=== PATIENT | female | born 1985 | race Caucasian/White ===

== ENCOUNTER 2023-04-25 19:53 | Outpatient (REF) | payer OTHER, SELFPAY ==
[2023-04-30 13:08] LABS: Age Gdln ACOG Testing Note (.); HPV Aptima Negative (Negative); IGP, Aptima HPV, rfx 16/18,45 Note (.)
== END 2023-04-25 19:54 ==
LOC: LAB 19:53
PROVIDERS: PCP Physician Assistant; Visit Provider Physician Assistant
DX: Z12.4 Encounter for screening for malignant neoplasm of cervix (principal)
CPT/HCPCS: 87624; G0145

== ENCOUNTER 2023-10-02 08:08 | Outpatient (OUT) | payer OTHER, SELFPAY ==
[2023-10-02 08:52] LABS: Basophils Percent Auto 0.6 % (0.2-2.0); Eosinophils Absolute Auto 0.1 10^3/uL (0.0-0.7); Eosinophils Percent Auto 1.8 % (0.9-7.0); Hematocrit 38.5 % (36.0-48.0); Hemoglobin 12.1 g/dL (12.0-16.0); Immature Granulocytes Abs Auto 0.01 10^3/uL (0.00-0.03); Immature Granulocytes Pct Auto 0.2 % (0.0-0.5); Lymphocytes Absolute Auto 1.8 10^3/uL (1.2-3.8); Lymphocytes Percent Auto 28.4 % (20.5-60.0); Mean Corpuscular HGB Conc 31.4 g/dL (29.9-35.2); Mean Corpuscular Hemoglobin 28.8 pg (26.7-34.0); Mean Corpuscular Volume 91.7 fL (81.0-99.0); Mean Platelet Volume 9.9 fL (9.5-13.5); Monocytes Absolute Auto 0.6 10^3/uL (0.3-0.8); Monocytes Percent Auto 8.9 % (1.7-12.0); Neutrophils Absolute Auto 3.8 10^3/uL (1.4-6.5); Neutrophils Percent Auto 60.1 % (43.0-75.0); Platelet Count 271 10^3/uL (150-450); Red Cell Distribution Width 13.7 % (11.0-15.0); White Blood Count 6.3 10^3/uL (4.0-11.0)
[2023-10-02 09:03] LABS: INR 0.99; Partial Thromboplastin Time 29.6 sec (22.3-36.2); Prothrombin Time 10.5 sec (9.0-11.6)
[2023-10-02 09:28] LABS: Alanine Aminotransferase 19 U/L (14-59); Albumin Globulin Ratio 1.1; Albumin Level 3.9 g/dL (3.4-5.0); Alkaline Phosphatase 64 U/L (46-116); Anion Gap 13.4; Aspartate Amino Transferase 18 U/L (15-37); BUN Creatinine Ratio 16.9; Bilirubin Direct 0.1 mg/dL (0.0-0.2); Bilirubin Total 0.7 mg/dL (0.2-1.0); Calcium 8.7 mg/dL (8.5-10.1); Carbon Dioxide 27.7 mmol/L (21.0-32.0); Chloride 103 mmol/L (98-107); Estimated GFR (African America >60 (>=60); Estimated GFR (Non-African Ame >60 (>=60); Globulin 3.6 g/dL; Glucose 87 mg/dL (74-106); Potassium 4.1 mmol/L (3.5-5.1); Sodium 140 mmol/L (136-145); Total Protein 7.5 g/dL (6.4-8.2)
== END 2023-10-02 08:09 | disposition home or self-care (01) ==
PROVIDERS: Visit Provider Obstetrics & Gynecology
DX: Z01.812 Encounter for preprocedural laboratory examination (principal); N92.0 Excessive and frequent menstruation with regular cycle; R10.2 Pelvic and perineal pain; N94.10 Unspecified dyspareunia; N94.6 Dysmenorrhea, unspecified
CPT/HCPCS: 80048; 80076; 85025; 85610; 85730; 86850; 86900; 86901

== ENCOUNTER 2023-10-08 06:18 | Day surgery (SDC) | payer OTHER, SELFPAY ==
[2023-10-02 08:36] VITALS: BP 116/77; PULSE 86; RESP 14; TEMP 36.3; O2SAT 99; BMI 17.8
[2023-10-08] VITALS (21 sets, daily range): BP systolic 92–111; BP diastolic 42–73; PULSE 56–99; RESP 11–18; TEMP 35.9–36.7; O2SAT 89–100; BMI 17.3
[2023-10-08 06:51] LABS: HCG Quantitative <1 mIU/mL
[2023-10-08] MEDS: LACTATED RINGER'S SOLUTION 1,000 ML 50 ML IV ×2 (07:00→08:38)
[2023-10-08] MEDS: CEFAZOLIN SODIUM/DEXTROSE,ISO 1 GM/50 ML IV.SOLN IV ×2 (07:42→14:27)
--- NOTE | 2023-10-08 09:45 | PM.ONB ---
Brief Operative Note Date of procedure: 10/08/23 Pre-op diagnosis: menorrhagia, pelvic pain Post-op diagnosis: same as pre-op Procedure: NAME OF PROCEDURE: ? Robotic assisted laparoscopic hysterectomy with cystoscopy PROCEDURE:? The patient was taken back to the operating room, where she was prepped and draped in the normal sterile fashion after being placed in the dorsal lithotomy position.? Patient?s anesthesia was found to be adequate.? Surgical timeout was performed using two patient identifiers.? SCDs were on and in place.? Two grams of Ancef were given prior to the surgery.? Sterile Galdamez catheter was inserted.? Standard size VCare was secured to the uterine cervix and the surgeon changed gloves.? Attention then was turned to the patient's abdomen, where a supraumbilical incision was then made.? Two S retractors were used to identify the patient?s fascia.? The fascia was then tented up using Leonel clamps and the patient?s fascia was incised sharply.? Patient?s abdomen was identified and entered bluntly.? The patient had the trocar placed and a pneumoperitoneum was obtained.? Approximately 4 liters of CO2 gas was used.? The camera was then placed through the trocar.? At this time, two robot trocars were placed in the patient?s left and right side, two hand widths from the midline, and this was placed under direct visualization.? Please note absent tubes were seen. The uterine ovarian ligament was identified and transected and ligated using the vessel sealer? The vessel sealer was carried down serially to the broad ligament, to the area of the bladder flap, which was then created anteriorly, and the uterine arteries were skeletonized and sealed using the vessel sealer.? The colpotomy was made using the monopolar cautery on cut, and this was carried circumferentially, posteriorly to anteriorly, until the uterus was amputated.? The specimen was then removed intact through the vagina, without difficulty.? The vagina was then closed using two running V-Loc in a non-lock fashion.? The robot was undocked.? The abdomen was desufflated.? The skin defects were closed using 4-0 Vicryl.? Please note, the fascia was closed using 0 Vicryl.? Sponge, lap and needle counts were correct x2.? Patient was taken to recovery room in stable condition.? The patient was awakened by Anesthesia first.? Patient tolerated procedure well.??Please note left ovarian cystectomy was performed using the vessel sealer Anesthesia: CHELA Surgeon: Luigi Llamas Email Marketing Assistant: Sarah Salazar Estimated blood loss (mL): 100 Pathology: other (uterus and cervix) Condition: stable Disposition: PACU
[2023-10-08] MEDS: MEPERIDINE HCL/PF 25 MG/ML VIAL 12.5 MG IVP (10:05)
[2023-10-08] MEDS: OXYCODONE HCL/ACETAMINOPHEN 5MG/325MG 1 TAB PO (10:38)
[2023-10-08] MEDS: ONDANSETRON PF 4 MG/2 ML VIAL IV (12:10)
[2023-10-08] MEDS: LACTATED RINGER'S SOLUTION 1,000 ML 125 ML IV (13:40)
[2023-10-08 15:34] LABS: Basophils Percent Auto 0.2 % (0.2-2.0); Hematocrit 32.1 % (36.0-48.0); Hemoglobin 10.2 g/dL (12.0-16.0); Immature Granulocytes Abs Auto 0.04 10^3/uL (0.00-0.03); Immature Granulocytes Pct Auto 0.3 % (0.0-0.5); Lymphocytes Absolute Auto 0.6 10^3/uL (1.2-3.8); Mean Corpuscular HGB Conc 31.8 g/dL (29.9-35.2); Mean Corpuscular Hemoglobin 29.1 pg (26.7-34.0); Mean Corpuscular Volume 91.7 fL (81.0-99.0); Mean Platelet Volume 9.8 fL (9.5-13.5); Monocytes Absolute Auto 0.6 10^3/uL (0.3-0.8); Monocytes Percent Auto 5.2 % (1.7-12.0); Neutrophils Absolute Auto 10.2 10^3/uL (1.4-6.5); Neutrophils Percent Auto 89.3 % (43.0-75.0); Platelet Count 239 10^3/uL (150-450); Red Cell Distribution Width 13.5 % (11.0-15.0); White Blood Count 11.4 10^3/uL (4.0-11.0)
== END 2023-10-08 15:32 | disposition home or self-care (01) ==
LOC: SURGOUT 06:19 → MS 10:48
PROVIDERS: Visit Provider Obstetrics & Gynecology
PROC: (CPT 840; principal; 2023-10-08 07:30)
DX: N92.0 Excessive and frequent menstruation with regular cycle (principal); R10.2 Pelvic and perineal pain; N94.10 Unspecified dyspareunia; N94.6 Dysmenorrhea, unspecified; D25.9 Leiomyoma of uterus, unspecified; F42.9 Obsessive-compulsive disorder, unspecified; Z90.79 Acquired absence of other genital organ(s)
CPT/HCPCS: 58570; 36415; 84702; 85025; 88305; 88341; 88342; 94667; J1170; J2704

== ENCOUNTER 2024-10-12 20:25 | Outpatient (REF) | payer OTHER, SELFPAY ==
--- OUTSIDE RECORDS SUMMARY | 2024-10-12 20:29 | XMS_ITS | CCD ---
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 KIMBERLY DELGADO Attending Unavailab NAKIA Lo Attending Unavaila ble Rashid, Lluvia Primary Care Unavailable HERNAN ., DR BUCK Attending Unavailable REQUEST, DR PAULINO LISTED Primary Care Unavaila ble HERNAN ., DR BUCK Admitting Unavailable HERNAN ., DR BUCK Attending Unavailable HERNAN ., DR BUCK Admitting Unavailable REQUEST, DR PAULINO LISTED Primary Care Unavaila ble HERNAN ., DR BUCK Consulting Unavailable MARCELLE IIGAIL Consulting Unavailable HERNAN ., DR BUCK Consulting Unavailable HERNAN ., DR BUCK Attending Unavailable REQUEST, DR PAULINO LISTED Primary Care Unavaila ble HERNAN ., DR BUCK Admitting Unavailable ZIEBER, DR ZINA Cavanaugh Consulting Unavailable HEBER LLAMAS Attending Unavailable HEBER LLAMAS Attending Unavailable HEBER LLAMAS Attending Unavailable DIANA RAYUMNDO Attending Unavailable DIANA RAYMUNDO Attending Unavailable DIANA RAYMUNDO Attending Unavailable HEBER LLAMAS Attending Unavailable Medications Current Medications Medication Drug Class(es) Dates Sig (Normalized) Sig (Original) ALPRAZolam 0.5 mg disintegrating oral tablet (2 sources) Benzodiazepine Start: 06-18-2022 take 1 tablet by mouth three times daily as needed for anxiety alprazolam 0.5 mg oral tablet, disintegrating 0.5 mg = 1 tab(s), Oral, TID, PRN for anxiety, OARRS reviewed; 10 days supply; DX F41.9, # 20 tab(s), Refills(s) 0, Pharmacy: [facility] #[id number], 165, cm, 06/18/22 10:03:00 EDT, Height/Length Dosing, 49.5, kg, 06/18/22 10:03:00 EDT, Weight Do... Start Date: 06/18/22 Status: Ordered ibuprofen 600 mg oral tablet (3 sources) Nonsteroidal Anti-inflammatory Drug Start: 09-13-2021 take 1 tablet by mouth every six hours ibuprofen 600 mg Tab 600 mg = 1 tab(s), Oral, q6hr, # 40 tab(s), Refills(s) 0, Pharmacy: [facility] #[id number], 165.1, cm, 09/13/21 9:02:00 EDT, Height/Length Dosing, 60, kg, 09/13/21 9:02:00 EDT, Weight Dosing Start Date: 09/13/21 Status: Ordered levonorgestrel 0.679439 mg/hr intrauterine system (2 sources) Progestin, Progestin-containin g Intrauterine Device Start: 06-18-2022 Liletta 52 mg IUD = 1 EA, IntraUteral, Once, Refills(s) 0 Start Date: 06/18/22 Status: Ordered Multivitamins (1 source) Start: 08-30-2015 take 1 tablet by mouth once daily Multivitamins 1 tab(s), Oral, Daily, Refill(s) 0 Start Date: 08/30/15 Status: Ordered propranolol hydrochloride 20 mg oral tablet (2 sources) beta-Adrenergic Ivania Start: 06-18-2022 take 1 tablet by mouth three times daily propranolol 20 mg Tab 20 mg = 1 tab(s), Oral, TID, Take an hour before pivotal event, # 90 tab(s), Refills(s) 0, Pharmacy: [facility] #[id number], 165, cm, 06/18/22 10:03:00 EDT, Height/Length Dosing, 49.5, kg, 06/18/22 10:03:00 EDT, Weight Dosing Start Date: 06/18/22 Status: Ordered psyllium 525 mg oral capsule (1 source) Start: 05-04-2019 take 5 capsules by mouth once daily as needed for constipation Metamucil 525 mg oral capsule 2,625 mg = 5 cap(s), Oral, Daily, PRN for constipation, # 100 cap(s), Refills(s) 0 Start Date: 05/04/19 Status: Ordered Slow Release Iron 45 mg oral tablet, extended release (3 sources) Start: 09-13-2021 Slow Release Iron 45 mg oral tablet, extended release Refills(s) 0 Start Date: 09/13/21 Status: Ordered Completed/Discontinued Medications Medication Drug Class(es) Dates Sig (Normalized) Sig (Original) Multivitamins CAPS (4 sources) Multivitamins CA PS Quantity: 0 Refills: 0 Ordered: 27-Sep-2022 DO Active Problems Active Problems Problem Classification Problem Date Documented Date Episodic/Chronic Abdominal pain (1 source) Pelvic and perineal pain; Translations: [PELVIC AND PERINEAL PAIN] Onset: 03-01-2023 Episodic Anxiety disorders (5 sources) Obsessive-compulsive disorder; Translations: [Obsessive-compulsive disorder, unspecified] Onset: 06-18-2022 08-30-2015 Chronic Menstrual disorders (5 sources) Excessive and frequent menstruation with regular cycle; Translations: [EXCESS FREQ MENSTRUATION W/REG CYCL] Onset: 12-22-2022 Chronic Other diseases of veins and lymphatics (1 source) Compression of vein; Translations: [Compression of vein] Onset: 10-16-2022 Episodic Other female genital disorders (1 source) Abnormal uterine and vaginal bleeding, unspecified; Translations: [ABNORMAL UTERINE VAGINAL BLEED UNS] Onset: 03-01-2023 Chronic Other female genital disorders (4 sources) Lesion of labia; Translations: [Other specified noninflammatory disorders of vulva and perineum] Episodic Other female genital disorders (3 sources) Pelvic congestion syndrome; Translations: [Pelvic congestion syndrome] Episodic Other female genital disorders (1 source) Other specified conditions associated with female genital organs and menstrual cycle; Translations: [Oth cond assoc w female genital organs and menstrual cycle] Onset: 10-16-2022 Episodic Other nutritional; endocrine; and metabolic disorders (3 sources) Body mass index less than 20; Translations: [Body mass index (BMI) 19.9 or less, adult] Onset: 06-18-2022 Episodic Ovarian cyst (2 sources) Other ovarian cyst, left side; Translations: [Other ovarian cyst, right side] Onset: 12-24-2022 Episodic Unclassified (3 sources) Patient encounter status 03-27-2021 Unclassified (1 source) Paravisceral aneurysm of the abd aorta, without rupture; Translations: [Paravisceral aneurysm of the abd aorta, without rupture] Onset: 10-16-2022 Past or Other Problems Problem Classification Problem Date Documented Date Episodic/Chronic Unclassified (6 sources) Streptococcus agalactiae (organism) Resolved: 07-14-2018 11-25-2016 Unclassified (18 sources) Onset: 11-18-2014 Resolved: 09-13-2021 09-01-2015 Results Test Name Value Interpretation Reference Range Facility SURGICAL PATH REPORTon 10-14 SURGICAL PATH REPORT [facility] Department of Pathology [address] [place] [phone] Name: KAREEM MEYER : 1985 Formerly [facility] [id number] Number: [facility] : n: Admit 38 years Attending HEBER LLAMAS Age: Provider: Ordering HEBER LLAMAS Provider: Consulti Surgical Pathology Report ng: ACCESSION: COLLECTED DATE/TIME: RECEIVED DATE/TIME: PATHOLOGIST: [id number] 10/08/2023 13:29 EST 10/08/2023 13:29 WILLY COSTA MD, JEANETTE Final Diagnosis Report for [facility] [place] UTERUS, CERVIX; HYSTERECTOMY: - MYOMETRIUM WITH BENIGN LEIOMYOMA. - PROLIFERATIVE PHASE ENDOMETRIUM. - BENIGN CERVIX WITH MILD CHRONIC INFLAMMATION. NOTE: Immunostain for p16 and Ki67 were used for evaluation. The findings support the diagnosis. JEANETTE COSTA PATHOLOGIST (Electronic Signature) Date Verified 10/14/2023 LL Clinical Data PRE-OP DIAGNOSIS: Not specified POST-OP DIAGNOSIS: Menorrhagia, pelvic pain, dyspareunia, dysmenorrhea, PROCEDURES: DaVinci assisted laparoscopic hysterectomy, cysto SPECIMEN: Uterus, cervix VISIT #[id number] / Surgical outpatient Gross Description Labeled uterus, cervix. Received in formalin is an intact uterus with no attached adnexal structures. The uterus weighs 136 grams and measures 9.1 x 7.0 cm, AP dimension 5.0 cm. The serosal surface is burt pink, smooth and glistening. The cervical os is patent with a cross diameter of 0.6 cm. The ectocervical mucosa is burt pink, smooth and glistening. Nearer to the os it is more erythematous and fine granular. The cervical canal measures to a depth of 2.8 cm. The endometrial cavity has a normal configuration and measures to an additional depth of 5.6 cm, intrafundal dimension 3.5 cm. The endometrium is velvety, burt-red, smooth and glistening with an average thickness of 0.2 cm. Sectioning through the anterior uterine wall, it is ____ Print 10/14/2023 12:50 EST Number: Date/Time: [facility] Department of Pathology [address] [place] [phone] Name: KAREEM MEYER : 1985 Formerly [facility] [id number] Number: Gender [facility] : n: Admit 38 years Attending HEBER LLAMAS Age: Provider: Ordering HEBER LLAMAS Provider: Consulti Surgical Pathology Report ng: ACCESSION: COLLECTED DATE/TIME: RECEIVED DATE/TIME: PATHOLOGIST: [id number] 10/08/2023 13:29 EST 10/08/2023 13:29 EST IGOR JUAREZ, [facility] Gross Description homogeneous, burt pink except for the presence of two similar bulging white whorled nodules. The largest measures up to 0.6 cm in greatest dimension. The wall overall measures up to 2.3 cm in thickness. Sectioning through the posterior uterine wall, it is homogeneous, burt pink except for the presence of two similar bulging white whorled nodules. The largest measures up to 0.7 cm in greatest dimension. The wall overall measures up to 2.5 cm in thickness. Lining Folder sections are submitted under the following designations: #1 - anterior cervix at 12 o'clock #2-3 - full thickness anterior uterine wall #4 - anterior uterine wall nodules #5 - posterior cervix at 6 o'clock #6-7 - full thickness posterior uterine wall #8 - posterior uterine wall nodules MP/slb 10/08/2023 Tissue pathology report for: [facility], [address] [place] [address]; PATHOLOGY SERVICES PROVIDED BY [employer] (CLIA #[id number]) in cooperation with [facility] at [address] [place] [address] (CLIA #[id number]) Microscopic Diagnosis The final diagnosis is based on a microscopic exam of telecommunications sales representative sections. NOTE: One or more of the reagents used to perform assays on this specimen MAY have contained components considered to be analyte specific reagents ( ASRs). ASRs have not been cleared or approved by the U.S. Food and Drug Administration. The performance characteristics of these assays have been determined by the Department of Pathology at [facility]. This assay was performed subsequent to the H and E examination. Appropriate positive and negative controls were examined with appropriate reactivity. ____ Print 10/14/2023 12:50 EST Number: Date/Time: [facility] Department of Pathology [address] [place] [phone] Name: KAREEM MEYER : 1985 Financial [id number] Number: Gender Female Tamia MCKENNA : n: Admit 38 years Attending HEBER LLAMAS Age: Provider: Ordering HEBER LLAMAS (more content not included)... Normal [facility] Comment on above: Performed By: #### [id number] #### [facility] Laboratory Services [address] [place] [address] Landscape Laborer: Erickson Patel MD SURGICAL PATH REPORTon 03-12 SURGICAL PATH REPORT [facility] Department of Pathology [address] [place] [phone] Name: KAREEM MEYER : 1985 [employer] [id number] Number: Gender Female Tamia MCKENNA : n: Admit 37 years Attending HEBER LLAMAS Age: Provider: Ordering HEBER LLAMAS Provider: Consulti Surgical Pathology Report ng: ACCESSION: COLLECTED DATE/TIME: RECEIVED DATE/TIME: PATHOLOGIST: [id number] 03/08/2023 16:30 EDT 03/11/2023 13:33 EDT IGOR JUAREZ, [facility] Final Diagnosis Report for [facility] [place] BILATERAL FALLOPIAN TUBES; SALPINGECTOMY: - BENIGN BILATERAL FALLOPIAN TUBES WITH FULL CROSS SECTIONS. JEANETTE COSTA PATHOLOGIST (Electronic Signature) Date Verified 03/12/2023 Clinical Data PRE-OP DIAGNOSIS: Not specified POST-OP DIAGNOSIS: Menorrhagia, abnormal uterine bleeding, desires sterilization PROCEDURES: Endometrial ablation - Dayanara, IUD removal, bilateral laparoscopic salpingectomy assisted by Davinci robot SPECIMEN: Bilateral fallopian tubes / Ambulatory surgery Gross Description Labeled bilateral fallopian tubes. . Received in formalin are bilateral fallopian tubes. These consist of cylindrical segments which are pink purple to red. Each include one end which is fimbriated. The first fallopian tube segment measures 8.0 cm in length and has a cross diameter ranging from 0.4 to 0.6 cm proximal to distal. The remaining fallopian tube measures 6.2 cm in length and has a cross diameter ranging from 0.3 to 0.5 cm proximal to distal. The segments are serially sectioned in a transverse manner. Lining Folder sections are submitted under the following designations: 1- First described fallopian tube. ____ Print 03/12/2023 15:43 EDT Number: Date/Time: [facility] Department of Pathology [address] [place] [phone] Name: KAREEM MEYER : 1985 Former[facility] [id number] Number: Gender Female [facility] : n: Admit 37 years Attending HEBER LLAMAS Age: Provider: Ordering HEBER LLAMAS Provider: Consulti Surgical Pathology Report ng: ACCESSION: COLLECTED DATE/TIME: RECEIVED DATE/TIME: PATHOLOGIST: [id number] 03/08/2023 16:30 EDT 03/11/2023 13:33 EDT IGOR JUAREZ, [facility] Gross Description 2 - Second described fallopian tube. MP/ww 03/11/2023 Tissue pathology report for: [facility], [address] [place] [address]; PATHOLOGY SERVICES PROVIDED BY [employer] (CLIA #[id number]) in cooperation with [facility] at [address] [place] [address] (CLIA #[id number]) Microscopic Diagnosis The final diagnosis is based on a microscopic exam of telecommunications sales representative sections. Codes CPT CODE: 65406 ____ Print 03/12/2023 15:43 EDT Number: Date/Time: Normal [facility] Comment on above: Performed By: #### [id number] #### [facility] [address] [id number] Landscape Laborer: Erickson Patel MD CBC AUTO DIFFon 03-08-2023 BASO # 0.0 103/ul Normal 0.0-0.1 [facility] Comment on above: Performed By: #### C BC #### [facility] [address] [place] [address] Dr. Megan Reid Basophils/100 WBC (Bld) 0.7 % Normal 0.2-2.0 [facility] Comment on above: Performed By: #### C BC #### [facility] [address] [place] [address] Dr. Megan Reid EO # 0.1 103/ul Normal 0.0-0.7 [facility] Comment on above: Performed By: #### C BC #### [facility] [address] [place] [address] Dr. Megan Reid Eosinophils/100 WBC (Bld) 1.5 % Normal 0.9-7.0 [facility] Comment on above: Performed By: #### C BC #### [facility] [address] [place] [address] Dr. Megan Reid Erythrocyte distribution width (RBC) [Ratio] 15.0 % Normal 11.0-15.0 [facility] Comment on above: Performed By: #### C BC #### [facility] [address] [place] [address] Dr. Megan Reid Hematocrit (Bld) [Volume fraction] 37.9 % Normal 36.0-48.0 [facility] Comment on above: Performed By: #### C BC #### [facility] [address] [place] [address] Dr. Megan Reid Hemoglobin (Bld) [Mass/Vol] 12.3 g/dL Normal 12.0-16.0 [facility] Comment on above: Performed By: #### C BC #### [facility] [address] [place] [address] Dr. Megan Reid IG # 0.02 10e3/ul Normal 0.00-0.03 [facility] Comment on above: Performed By: #### C BC #### [facility] [address] [place] [address] Dr. Megan Reid IG % 0.3 % Normal 0.0-0.5 [facility] Comment on above: Performed By: #### C BC #### [facility] [address] [place] [address] Dr. Megan Reid LYMPH # 2.0 103/ul Normal 1.2-3.8 [facility] Comment on above: Performed By: #### C BC #### [facility] [address] [place] [address] Dr. Megan Reid Lymphocytes/100 WBC (Bld) 34.0 % Normal 20.5-60.0 [facility] Comment on above: Performed By: #### C BC #### [facility] [address] [place] [address] Dr. Megan Reid MANUAL DIFF REQ NO Normal [facility] Comment on above: Performed By: #### C BC #### [facility] [address] [place] [address] Dr. Megan Reid MCH (RBC) [Entitic mass] 29.1 pg Normal 26.7-34.0 [facility] Comment on above: Performed By: #### C BC #### [facility] [address] [place] [address] Dr. Megan Reid MCHC (RBC) [Mass/Vol] 32.5 g/dL Normal 29.9-35.2 [facility] Comment on above: Performed By: #### C BC #### [facility] [address] [place] [address] Dr. Megan Reid MCV (RBC) [Entitic vol] 89.6 fL Normal 81.0-99.0 [facility] Comment on above: Performed By: #### C BC #### [facility] [address] [place] [address] Dr. Megan Reid MONO # 0.6 103/ul Normal 0.3-0.8 [facility] Comment on above: Performed By: #### C BC #### [facility] [address] [place] [address] Dr. Megan Reid Monocytes/100 WBC (Bld) 9.5 % Normal 1.7-12.0 [facility] Comment on above: Performed By: #### C BC #### [facility] [address] [place] [address] Dr. Megan Reid NEUT # 3.2 103/ul Normal 1.4-6.5 [facility] Comment on above: Performed By: #### C BC #### [facility] [address] [place] [address] Dr. Megan Reid Neutrophils/100 WBC (Bld) 54.0 % Normal 43.0-75.0 [facility] Comment on above: Performed By: #### C BC #### [facility] [address] [place] [address] Dr. Megan Reid Platelet mean volume (Bld) [Entitic vol] 9.6 fL Normal 9.5-13.5 [facility] Comment on above: Performed By: #### C BC #### [facility] [address] [place] [address] Dr. Megan Reid PLT 277 103/ul Normal 150-450 [facility] Comment on above: Performed By: #### C BC #### [facility] [address] [place] [address] Dr. Megan Reid RBC 4.23 106/ul Normal 4.20-5.40 [facility] Comment on above: Performed By: #### C BC #### [facility] [address] [place] [address] Dr. Megan Reid WBC 5.9 103/ul Normal 4.0-11.0 [facility] Comment on above: Performed By: #### C BC #### [facility] [address] [address] [address] Megan Reid PREG QUANT HCGon 03-08-2023 HCG QUANT 1 mIU/mL Normal [facility] Comment on above: Performed By: #### P REGQNT #### [facility] [address] [address] [address] Megan Reid HCG RANGE SEE BELOW Normal [facility] Comment on above: Result Comment: 5-50 0.2-1 WEEK 50-500 1-2 WEEKS 100-5,000 2-3 WEEKS 500-10,000 3-4 WEEKS 1,000-50,000 4-5 WEEKS 10,000-100,000 5-6 WEEKS 15,000-200,000 6-8 WEEKS 10,000-100,000 2-3 MONTHS Performed By: #### P REGQNT #### [facility] [address] [address] [address] Megan Reid SURGICAL PATH REPORTon 01-14 SURGICAL PATH REPORT [facility] Department of Pathology [address] [place] [phone] Name: KAREEM MEYER : 1985 Former[facility] [id number] Number: [facility] : n: Admit 37 years Attending HEBER LLAMAS Age: Provider: Ordering HEBER LLAMAS Provider: Consulti Surgical Pathology Report ng: ACCESSION: COLLECTED DATE/TIME: RECEIVED DATE/TIME: PATHOLOGIST: [id number] 01/10/2023 13:32 EST 01/11/2023 13:32 EST EVANGELINA VINSON MD Final Diagnosis Report for [facility] [place] ENDOMETRIUM, BIOPSY: - ENDOMETRIUM WITH FEATURES SUGGESTIVE OF EXOGENOUS HORMONAL EFFECT. EVANGELINA VINSON PATHOLOGIST (Electronic Signature) Date Verified 01/14/2023 LN Clinical Data PRE-OP DIAGNOSIS: Not specified POST-OP DIAGNOSIS: Menorrhagia with regular cycles PROCEDURES: Endometrial biopsy SPECIMEN: EMBX VISIT #N/A / Doctor's office Gross Description Labeled EMBX. Received in formalin are multiple irregular burt feathery segments of soft tissue. The specimen is filtered and has a filtrate aggregate dimension of 0.9 x 0.6 x 0.2 cm. The specimen is entirely submitted in one cassette. MP/abeba 01/11/2023 Tissue pathology report for: [facility], [address] [place] [address], [address] [address]; ____ Print 01/14/2023 14:21 EST Number: Date/Time: [facility] Department of Pathology [address] [place] [phone] Name: KAREEM MEYER : 1985 [facility] [id number] Number: Gender [facility] : n: Admit 37 years Attending HEBER LLAMAS Age: Provider: Ordering HEBER LLAMAS Provider: Consulti Surgical Pathology Report ng: ACCESSION: COLLECTED DATE/TIME: RECEIVED DATE/TIME: PATHOLOGIST: [id number] 01/10/2023 13:32 EST 01/11/2023 13:32 EST KAREL JUAREZ, EVANGELINA Gross Description PATHOLOGY SERVICES PROVIDED BY [employer] (CLIA #[id number]) in cooperation with [facility] at [address] [place] [address] ( CLIA #[id number]) Codes CPT CODE: 21131 ____ Print 01/14/2023 14:21 EST Number: Date/Time: Normal [facility] Comment on above: Performed By: #### [id number] #### [facility] [address] [id number] Landscape Laborer: Erickson Patel MD US PELVIS AND TRANSVAGon US PELVIS AND TRANSVAG EXAMINATION: US PELVIS AND TRANSVAG HISTORY: Excessive and frequent menstruation COMPARISON: No relevant comparison available. TECHNIQUE: Transabdominal and transvaginal sonographic examination. FINDINGS: UTERUS: Normal size and appearance. Uterus size: 10.3 x 4.3 x 6.8 cm ENDOMETRIUM: IUD within endometrial cavity. Endometrial thickness: 6 mm RIGHT OVARY: Contains a 4.2 cm benign-appearing simple cyst. Duplex Doppler demonstrates normal waveform and flow; resistive index 0.5. Ovary size: 4.6 x 3.0 x 4.7 cm LEFT OVARY: Contains a 2.5 cm benign-appearing simple cyst. Duplex Doppler demonstrates normal waveform and flow; resistive index 0.5. Ovary size: 3.3 x 2.1 x 3.9 cm CUL-DE-SAC: Unremarkable. No significant free fluid. BLADDER: Unremarkable. OTHER: None. IMPRESSION: 1. No acute or suspicious findings to account for patient's symptoms. 2. IUD within endometrial cavity. 3. Bilateral large, but benign-appearing simple ovarian cysts. No additional follow-up recommended at this time. Electronically authenticated by: ZINA SINGER Date: 2022-12-23 16:25 Normal [facility] CBC AUTO DIFFon 12-22-2022 BASO # 0.0 103/ul Normal 0.0-0.1 [facility] Comment on above: Performed By: #### C BC #### [facility] [address] [place] [address] Dr. Megan Reid Basophils/100 WBC (Bld) 0.5 % Normal 0.2-2.0 [facility] Comment on above: Performed By: #### C BC #### [facility] [address] [place] [address] [address] [address] Megan Reid EO # 0.1 103/ul Normal 0.0-0.7 [facility] Comment on above: Performed By: #### C BC #### [facility] [address] [place] [address] Dr. Megan Reid Eosinophils/100 WBC (Bld) 1.2 % Normal 0.9-7.0 [facility] Comment on above: Performed By: #### C BC #### [facility] Laboratory [address] [place] [address] Dr. Megan Reid Erythrocyte distribution width (RBC) [Ratio] 14.4 % Normal 11.0-15.0 [facility] Comment on above: Performed By: #### C BC #### [facility] [address] [place] [address] Dr. Megan Reid Hematocrit (Bld) [Volume fraction] 40.6 % Normal 36.0-48.0 [facility] Comment on above: Performed By: #### C BC #### [facility] [address] [place] [address] Dr. Megan Reid Hemoglobin (Bld) [Mass/Vol] 12.3 g/dL Normal 12.0-16.0 [facility] Comment on above: Performed By: #### C BC #### [facility] [address] [place] [address] Dr. Megan Reid IG # 0.02 10e3/ul Normal 0.00-0.03 [facility] Comment on above: Performed By: #### C BC #### [facility] [address] [place] [address] Dr. Megan Reid IG % 0.3 % Normal 0.0-0.5 [facility] Comment on above: Performed By: #### C BC #### [facility] [address] [place] [address] Dr. Megan Reid LYMPH # 1.7 103/ul Normal 1.2-3.8 [facility] Comment on above: Performed By: #### C BC #### [facility] [address] [place] [address] Dr. Megan Reid Lymphocytes/100 WBC (Bld) 23.1 % Normal 20.5-60.0 [facility] Comment on above: Performed By: #### C BC #### [facility] [address] [place] [address] Dr. Megan Reid MANUAL DIFF REQ NO Normal [facility] Comment on above: Performed By: #### C BC #### [facility] [address] [place] [address] Dr. Megan Reid MCH (RBC) [Entitic mass] 28.0 pg Normal 26.7-34.0 [facility] Comment on above: Performed By: #### C BC #### [facility] [address] [place] [address] Dr. Megan Reid MCHC (RBC) [Mass/Vol] 30.3 g/dL Normal 29.9-35.2 [facility] Comment on above: Performed By: #### C BC #### [facility] [address] [place] [address] Dr. Megan Reid MCV (RBC) [Entitic vol] 92.3 fL Normal 81.0-99.0 [facility] Comment on above: Performed By: #### C BC #### [facility] [address] [place] [address] Dr. Megan Reid MONO # 0.7 103/ul Normal 0.3-0.8 [facility] Comment on above: Performed By: #### C BC #### [facility] [address] [place] [address] Dr. Megan Reid Monocytes/100 WBC (Bld) 9.5 % Normal 1.7-12.0 [facility] Comment on above: Performed By: #### C BC #### [facility] [address] [place] [address] Dr. Megan Reid NEUT # 4.8 103/ul Normal 1.4-6.5 [facility] Comment on above: Performed By: #### C BC #### [facility] [address] [place] [address] Dr. Megan Reid Neutrophils/100 WBC (Bld) 65.4 % Normal 43.0-75.0 [facility] Comment on above: Performed By: #### C BC #### [facility] [address] [address] [address] Megan Reid Platelet mean volume (Bld) [Entitic vol] 9.9 fL Normal 9.5-13.5 [facility] Comment on above: Performed By: #### C BC #### [facility] [address] [address] [address] Megan Reid PLT 332 103/ul Normal 150-450 [facility] Comment on above: Performed By: #### C BC #### [facility] [address] [address] [address] Megan Reid RBC 4.40 106/ul Normal 4.20-5.40 [facility] Comment on above: Performed By: #### C BC #### [facility] [address] [address] [address] Megan Reid WBC 7.3 103/ul Normal 4.0-11.0 [facility] Comment on above: Performed By: #### C BC #### [facility] [address] [address] [address] Megan Reid FREE T4on 12-22-2022 Free T4 [Mass/Vol] 1.00 ng/dL Normal 0.76-1.46 [facility] Comment on above: Performed By: #### F T4 #### [facility] [address] [address] [address] Megan Reid GLYCOHEMOGLOBIN A1Con 2022 ADA RECOMMENDATION SEE BELOW Normal [facility] Comment on above: Result Comment: ADA RECOMMENDED LIMIT 4.0 - 6.0 ADA THERAPEUTIC TARGET < 7.0 ACTION SUGGESTED > 7.0 Performed By: #### A 1C ####[facility] [address] [address]Dr. Megan Reid Glucose [Mass/Vol] 114 mg/dL Normal [facility] Comment on above: Performed By: #### A 1C ####[facility] [address] [address]Dr. Megan Reid HbA1c (Bld) [Mass fraction] 5.6 % Normal 4.5-6.2 [facility] Comment on above: Performed By: #### A 1C ####[facility] [address] [address]Dr. Megan Reid PREG QUANT HCGon 12-22-2022 HCG QUANT 1 mIU/mL Normal [facility] Comment on above: Performed By: #### T SH, PREGQNT #### [facility] [address] [address] [address] Megan Reid HCG RANGE SEE BELOW Normal [facility] Comment on above: Result Comment: 5-50 0.2-1 WEEK 50-500 1-2 WEEKS 100-5,000 2-3 WEEKS 500-10,000 3-4 WEEKS 1,000-50,000 4-5 WEEKS 10,000-100,000 5-6 WEEKS 15,000-200,000 6-8 WEEKS 10,000-100,000 2-3 MONTHS Performed By: #### T SH, PREGQNT #### [facility] [address] [address] [address] Megan Reid PROTIMEon 12-22-2022 INR Coag (PPP) [Relative time] 1.03 {INR} Normal [facility] Comment on above: Performed By: #### P T, PTT #### [facility] [address] [place] [address] Dr. Megan Reid INR GUIDELINES SEE BELOW Normal [facility] Comment on above: Result Comment: PHILLY RED INR: 2.0 - 3.0 CONDITIONS NOT LISTED BELOW 2.5 - 3.5 FOR PROSTHETIC HEART VALVE REPLACEMENT 2.5 - 3.5 RECURRENT THROMBOSIS Performed By: #### P T, PTT #### [facility] [address] [address] [address] Megan Reid PT Coag (PPP) [Time] 10.9 s Normal 9.0-11.6 [facility] Comment on above: Performed By: #### P T, PTT #### [facility] [address] [address] [address] Megan Reid PTTon 12-22-2022 aPTT Coag (Bld) [Time] 28.4 s Normal 22.3-36.2 [facility] Comment on above: Performed By: #### P T, PTT #### [facility] [address] [place], [place] [address] Dr. Megan Reid TSHon 12-22-2022 TSH 1.439 uIU/mL Normal 0.358-3.740 [facility] Comment on above: Performed By: #### T SH, PREGQNT #### [facility] [address] [place], [place] [address] Dr. Megan Reid Chart Updateon 10-16-2022 Chart Update Diagnoses/Problems Pelvic congestion (625.5) (N94.89) Chart Update Discussed with patient that her abd US was negative for pelvic venous congestion. I suggested to f/u with her [employer] for frequent menses and possible dermatology to look at her labia darkened spots. They are not varicose veins. Signatures Electronically signed by : JAYJAY Ram; Oct 17 2022 12:47PM EST (Author) Normal [facility] Office Visit (Vascular Surge ry)on 10-16-2022 Follow-up visit Diagnoses/Problems Assessed Pelvic congestion (625.5) (N94.89) Patient Discussion/Summary It was a pleasure to meet you today your were seen today to r/o pelvic venous congestion recent vaginal varicose vein bleed ? heavy menses' since August of last year no real pelvic pain or bloating plan: will obtain abd/aortic/iliac US today for Pelvic venous congestion stay NPO for now once your study is done we will see if Dr. Osuna can review your testing otherwise you can go home and we will call you with the results. The patient understands and agrees to the options for management and the treatment plan. All questions were answered during the office visit. Provider Impressions 37 year old female with no significant medical history who presents for evaluation of right labial varicose veins. The patient has had 5 pregnancies. She states she developed 3 small lesions on her labia after the of her youngest son in 08/2021, which she thought were black pimples at the time. She was evaluated by her OBGYN who told her they were varicose veins. She was told to put Purell on them and they eventually went away, however they continue to recur. Denies pelvic swelling. She does not have any lower extremity varicose veins or leg swelling. Grandmother with a history of varicose veins. No personal or family history of DVT. Non-smoker. Pt has 5 children with her last Aug 2021. Since then, patient has developed severe mensuration with clotting tissue and heavy flow lasting almost 10 days with very little relief between menstruation. She was seen by her [employer] Dr. Smith who placed IUD the end of May. Since then, she has experienced 3 ?vaginal varicosity bleeds. Dr. Smith recently excised on of the 3 areas of varicose veins just a few weeks ago. + pelvic pain and cramping during menses. Very heavy. No pain during intercourse. NO pain or discomfort during BM or urination . your were seen today to r/o pelvic venous congestion recent vaginal varicose vein bleed ? heavy menses' since August of last year no real pelvic pain or bloating plan: will obtain abd/aortic/iliac US today for Pelvic venous congestion stay NPO for now once your study is done we will see if Dr. Osuna can review your testing otherwise you can go home and we will call you with the results. The patient understands and agrees to the options for management and the treatment plan. All questions were answered during the office visit. Chief Complaint The patient presents to the office today for an initial evaluation. The patient presents for evaluation of. Pelvic venous congestion , labial varicose vein. The patient is referred by: Dr Mike, Primary Care Physician. Labia Varicose Veins that keep rupturing Adult Risk Screening Initial Fall Risk Screening: KAREEM has not fallen in the last 6 months. Her fall did not result in injury. KAREEM does not have a fear of falling. She does not need assistance with sitting, standing or walking. Does not need assistance walking in her home. She does not need assistance in an unfamiliar setting. The patient is not using an assistive device. History of Present Illness This is a 37 year old female with no significant medical history who presents for evaluation of right labial varicose veins. The patient has had 5 pregnancies. She states she developed 3 small lesions on her labia after the of her youngest son in 08/2021, which she thought were black pimples at the time. She was evaluated by her OBGYN who told her they were varicose veins. She was told to put Purell on them and they eventually went away, however they continue to recur. Denies pelvic swelling. She does not have any lower extremity varicose veins or leg swelling. Grandmother with a history of varicose veins. No personal or family history of DVT. Non-smoker. Pt has 5 children with her last Aug 2021. Since then, patient has developed severe mensuration with clotting tissue and heavy flow lasting almost 10 days with very little relief between menstruation. She was seen by her [employer] Dr. Smith who placed IUD the end of May. Since then, she has experienced 3 ?vaginal varicosity bleeds. Dr. Smith recently excised on of the 3 areas of varicose veins just a few weeks ago. + pelvic pain and cramping during menses. Very heavy. No pain during intercourse. NO pain or discomfort during BM or urination . Comprehensive ROS: All other systems have been reviewed and are negative except as noted in HPI Past medical, family and social history reviewed but not pertinent to current problem except as mentioned in HPI General: Alert and oriented responsive Eyes: No icterus Neck: No scars no bruits Neurological: Upper extremity and lower extremity strength +5 out of 5, gait and cognition and speech within normal limits Heart: Regular rate and rhythm Lungs: Clear Abdomen: Soft nontender no palpable masses or aneurysm Vascular: Normal 2+ upper extremity (more content not included)... Normal [facility] LAB Abdominal Aorta/Renetta ac/IVC Ultrasoundon 10-16-2022 VASC LAB Abdominal Aorta/Iliac/IVC Ultrasound Please click on the link to view the study images Normal [facility] [address] Work Phone: Office Visit (Vascular Surge ry)on 09-27-2022 Follow-up visit Diagnoses/Problems Assessed Lesion of labia (624.8) (N90.89) Provider Impressions This is a 37 year old female with no significant medical history who presents for evaluation of right labial varicose veins 1 year after . - Will refer to Dr. Osuna vs. Dr. Degroot for further evaluation and potential intervention - Will consider venous ultrasound of the groin vs. pelvic CT venous phase Chief Complaint The patient presents to the office today for an initial evaluation. Labia Varicose Veins that keep rupturing Adult Risk Screening Initial Fall Risk Screening: KAREEM has not fallen in the last 6 months. Her fall did not result in injury. KAREEM does not have a fear of falling. She does not need assistance with sitting, standing or walking. Does not need assistance walking in her home. She does not need assistance in an unfamiliar setting. The patient is not using an assistive device. History of Present Illness This is a 37 year old female with no significant medical history who presents for evaluation of right labial varicose veins. The patient has had 5 pregnancies. She states she developed 3 small lesions on her labia after the of her youngest son in 08/2021, which she thought were black pimples at the time. She was evaluated by her OBGYN who told her they were varicose veins. She was told to put Purell on them and they eventually went away, however they continue to recur. She currently has one on her right labia. They will occasionally bleed and then turn to a scab. Denies pain but they sometimes get irritated from rubbing on her clothing. Denies pelvic swelling. She does not have any lower extremity varicose veins or leg swelling. Grandmother with a history of varicose veins. No personal or family history of DVT. Non-smoker. Review of Systems As per HPI, rest of systems reviewed and negative. Allergies Medication No Known Drug Allergies Recorded By: Saray Izaguirre; 09/27/2022 1:29:17 PM Current Meds Medication NameInstruction Multivitamins CAPS Vitals Vital Signs Recorded: 27Sep2022 01:26PM Heart Rate93 Ednniqzc951 Rbprqnfck47 Height5 ft 5 in Ervpzr874 lb BMI Ospfmxwcuw09.81 kg/m2 BSA Calculated1.52 Tobacco Useb) No Falls Screening (Age 18+)a) No falls within the last year O2 Llrigaivnl235 Physical Exam Constitutional: no acute distress, well appearing Psychiatric: appropriate mood and behavior Neurologic: grossly intact, no focal deficits HEENT: PERRL, EOMI, clear sclera, moist mucous membranes, no apparent injury or lesions Neck: supple, no masses observed Cardiac: RRR, normal S1+S2, no murmur Respiratory: CTA, no wheezing Gastrointestinal: abdomen soft, NT, non-distended, no palpable pulsatile masses Extremities: no edema, peripheral pulses palpable. Small raised lesion on the right labia with a black/scabbed head Skin: No rashes, bruises, or lesions Signatures Electronically signed by : JAYJAY Hale; Sep 27 2022 2:36PM EST (Author) Normal [facility] Tobacco Screening.on 022 Fall risk assessment a) No falls within the last year [facility] [employer] [address] Work Phone: Tobacco use status [facility] b) No [facility] [place] [address] Work Phone: Coding Summary.on 09-26-2022 Coding Summary. [id number] ATd1xDg+PGhlYWQ+PE1 XRONdP50uzHWifX8DI0 lSIR8SCVJIHICQDA5EB Q5roYO0GSdlS3XhxmMc LlcgoKVfFH64IEz9LJN 5gMkiMEjkfF2qrSYlO3 p3KuGoQO26aW04PQesD SGtGnU1NyTvuvseuNHf X4fcLpDuyTVqIrz+PHR hYmxlIHdpZHRoPScxMD JlGtFwrBepLX5nMv9nU GVyLWNvbGxhcHNlOiBj b7aoAWFkHQtaPJ8tsKj bN8XznRG8DWTmo8o7He 48dHI+KUMvMVC0mQpvD Cywh765ZnQri2wtUNP1 eHZmLRxrXUZ6U84xf4Y 1YSPtAHEfWTZ6pXF4lP 0laWnvhmllU9OorNXaX kV6JYN5lJSecI5mbKvt xppyjY1kDjp+U85LYN7 BNMETWM2RKat8Q9TlRh wvdHI+BD84JNWeWT00p KBcdUUne4ddcZn0KwOw WVVnKGX1eRtlZAarp3S lSMTqL80zaBRrn7M9XW YduWiyaMOfTcTfvIC6u E1fJCwphzsmr3waxbkq Svqpr3ufsu06wI84M84 uASedYNNfNHI7OUTxMV BluFhtls9dtD9eCb3+I Fkpk2wyf3svqKd4UwPx MAXyddTprRylNDG2x7E kPk78L7ZgsVdlp6QhBd c6gy55uVQuh3K5rXL4T LmvYRWyeH1fCMpvBiZ2 SEYzOfApbS24hMYzPDz yUl4isNdlbPpdTP4vRV YhaxdzMEXorN3dSPLwd LOiiAkuBK4aXQGbqceg n577TeGuOAE7GUEhwTK iS1XjhT2uOeAgZWJkEO GgY9HwvBScYEfxQ877T CwlFkA0ITJpffMgZ9Ln VFSomSqzRvU2e4M7Ds4 Gd1GlzkuoBER3SOhoOH TuJfQ2PrGwIcI4A3BvO kq2PCBswVkkOH4oG1Rj ERCdchkrexgmoPK7RDE nQERwuW85dFVvVInvAk 8qr5B9l752UZPiBTTkb N11Ar0faSfrFSWhwXJF zR1sagltj9mmpcwsEaS aNNBaFAj2QGi2BMVeqF pgErGsHTC5UlZ4DIJ5h JLgwX2usNnsfnsfcT2o Oyc+J33zdZ6gXRD6FCE 3snldDMDayfIiKL35HL 81D7MiBoujzKJfqUO+P KZtnoLtzBgyFF4oWeJn g5oxd9TaJJzeE7EsGTC dDRrnTzy2SEXoZOB8qL X2oF9bIRQpXRvds9W0g OM2U5JnpiJcja3no6qa VIPuLLvoO44iqMZgw7Y 9WFJkbSS6EUJvzWfoXl SryR90Iis+PGNvbGdyb 7CcIuqox8wsa0vlwAv3 IjMwJSIgdmFsaWduPSJ 9q1WpOy36Z93mMOncHI RoPSIxNSUiIHZhbGlnb a1edH5jOm6+PGNvbCB3 nAN6uA3kTLHjBbE2RNk sT478GjMxaNGjSxols5 zrb4jzdJe5CuAlVBJdk qQneGjpJSC1e1BdDx73 R45wMObuNKCdCRFjYWR sDMThqSjmki1dxL9yIj 8+IS7bc1dnkk28aU77k HI+CASeWML4zJnzXRan YPDsrS3dXMyaOrC1WXW aAcYjgZ98eKJjSDejPk 3quMxriBqkGJ5cPNDmm tnii243QeKva6sjCUYu mKMpSZraHOR0X31nq1Z 8JAPnXMBwFPX1zWO8fT 1hbGlnbjogbGVmdDsgd wBwtPlfKOwjPFwfF162 IHRvcDsnPlBhdGllbnQ tJiTlHIm8D0FrHdh6PF KubEjjNE9alUPzFTjuA x2nsQlgxTsyYQ0eNBVf nrovg624YfFij4bpPKM cmPLeCNftPDB6D56yx6 A6DEQiJHFfMED7ePY5m J9caPwrgyddrWRrgQgw hsJefWpvGFinXHtdU11 6IHRvcDsnPkJpcnRoIE OryMF5LL12EZ38eEZdi 7D5vKR9E5TzYVVxqckd oftnmOV5ZVAtTTOotL5 1Cx1tbJqjRc2xMCHcGT U2GEOwnZQrT7TugV5vC aJaJUCrOQUtS9FxuUIr KBigF207OCjnNoJ2PFR ujzNuX0WyYKRdjEtaLz Y1n1S3Sd2EI2E4TF08H E69bKUpc4Z5fQF4Z1Df VIGdxgzovttphZV9ADG rIIZxrX40Ca6dpDefOg 8dIVRuFVF2EDWnkSArW 7NdaN3pSmInRZVxNGMf C5RamZGtOBvmZ407CMx fUmO5BRZyhaCqF3OjXH SneJhvRzK3t6P2Iu3NG Qg4WK27AB86sZKli4C8 oJW7H3LrXWXkqpteelx kqBW3WRYjIEDowR71Cn 0ncDzoRw8gXQWlIMW4P UAktWUlQ9HjfF3tPmYk GVTjRZNtA8PrxWGkMZy pX810ZHapAtG7GOYvra RmU7HvFPQeqYttAnX5w 3Z2Fj4OGQHaWK46QNC6 pEB8UV66ON85A8ToZnf vdGFibGU+PHRhYmxlIH dpZHRoPScxMDAlJyBzd JmyZE7tPj9eMMIuNKDn aXvtoTKxIeQoh0lyZUN gQRibUW3cpOqfB2YcdM J4TYDjo3o2Sr08K59eG 3JvdXA+RKJvpBS2aCC9 xA3hVbMqLzQ8FNupR49 6WtHpgHRiLdxvl3ahx6 wbdJl4IlJ2OZYcdiHrl YdjAWI4t4BfXs28T24a IHdpZHRoPSIxNSUiIHZ pcBnwbt1jtL4hLk6+PG QvuUR1mWU9tK9qPhBoS wP5QNehM271ItDypRSh Doflc8iyi0sbsXk2EdD mTPFelmGrqSyuUFV0j8 JlTc23F0VxpAogi3SgE cw7yy02wRZqi7C8uWR4 T8NeLKAutsbluNClwWg nDB1jUNGxrzvsSITlbD 0xSFMeD5o5LrToPnR9G FicF6DeaaX5RMFzlLXs CXlpVBF7Y68hf3H9WPY sNWAwOYC2bPC9xM4siR lnbjogbGVmdDsgdmVyd RhbRBoxKAvaE904AZUo dBuaBGWxfD2xJXZmtAF fwIinTL2iVSAumxcbAx NURUlOLCBTVEFDWSBMP B80JM52rPEhi7M3eFH5 U9AhIQAysworlenmiMN 3ZTInNLDsuT37xYOqBC laLt9mv5T7c899CFMfL QVovC27Rc1ypOpmWYRr nZLBmF1msnrlg1nnnbn tAzItZJPiQNs8RHg4RV NiwFkdWaYlCUY0VxX0M GN4vWSedI4sjYvdfkgi bS1tZed+MDQvMjIvMTk 4NzwvdGQ+OGUrTDT3zR kxYAngRDZsbR2gBXQjY 8f9CoEmDlR6WScgJ1Jz TEXcspejEg10vM9uPrT tPnG4ECfyB2WvyuG2ZI LexPMpNYgiYXH0Y25hf 6Q5PRMuKOBtKXB5yDR3 dJ7wyKlgprgptGSzoFw gdmVydGljYWwtYWxpZ2 91YKRnyRywOiJ6OWwoU JUbZV42RL87fBYtv3U4 mMZ1R8FcCZTepppgqco pzCM4PSMyLKHdkW46mU GjGHrxDm4iv2S1v928D WDeXMDyfK86Lo2bhCko RCSiyOHQxH7alpybz6d qwlytHrCuWJTaNVa5VZ e3QKAmvZukQyVhYZJ5T yO5ARZ0bCJahY3rzJup zgprdZ7xKva+RmVtYWx bDQ38KQ32lOVhp1L7gF C4P4EhZTFsyyqqcrfnb OS9KEOtHRYilC29gMFt TMetHu3wq8Q9a789EHT nLHCxkF31Hk8xfUgcFU LoyHLXuT2donued0yjo axjOzWwOXYlLUe6VPc3 IPAbmIddGlDiFLL3WdG 1IPZ4gJNtnP0tvOslgz zynW0bMmy+P0M1sHN0m WVudDwvdGQ+TL78nu33 J7RjIowlHmz4ZQFdMOD 7gRC1cV3tFZUkGBncj1 L3pLP9N3CcjgKbui0jz 1zaUGIsHWgvK44hzJKj n4W8KZJweAF5KMXpeIx cDxIatC66Jfv+PGNvbG rzk5MhQbnhn8pab3vdo He6RoMpHRTboqRarWek WQM6s2WyCv15C85wSCn pZHRoPSIzMCUiIHZhbG nnyj3puH4hFc7+PGNvb AK9yGX8kG8cRbXtNmR3 VBoxX485ZvSbgKXhVok bk4xrk3rdtSp0ZiSkMS LihyRihSklENU2q6VmE b44U6ZqxDzrx4QbPyd9 vx27vQKis5P9xUK7R2B hZGRpbmctbGVmdDogMC 8nPPZnsiuqCLAqgQ7lP VEsT9w3KnWgDzJ6MJgc D6TbsaI0JUXsxKXvUPP wvPRYfD0bqlehn2rquh gmSkCtUZItUEk6SLr8X ELyrJkeVgPyICZ2PgS9 ETG2mGYlqX3ysYiyjjw kqX5kBxl+PZe3o6biiQ TmUG0fnSF6AD60TM46p ITgp9L8vIZ3K0VyNIUl fwjqioaasJN0XEJmVCN bvW37Fe6fkWmnPk6iQY BoMJN2HHZyeVYwL7Him X1qTzTtUPDpEAPwC9Oz aQGgRNyzR517FJtrTmC 8GKMsvtBzU2XoZDOadW hhSeZ3y3Q7Lq3AQV43Z P38YA84wMEdr5Z4zZN6 K5EyNPIgfvjbmbpvjVM 9JUNsJBGddE94My6bqS koQo6aMYYjWOE4NPCaa NJdZ0KivX4oCxKxDZZx JOVfI0KvlNEbVUwsN11 5SNcoKsJ3UKBbxaQrP7 KbZVJkqVboQaL6b4L4P n9TNw03GB12BY62zXEi y0X7tBH1L4GiBGUrefl lzwugeEF9AYUcAUVvvW 63Uy4xbXbqMp2zBASvQ GU8WZOhxVIqU0XvzV4m SqTnXQQaEJBdY3CccLU gFGogN395DLkvKpZ5HT FovvFuX0WsOVYpwAnnJ fH8p2F1Rk0XZNafkjc5 E8VnTzyiyLZ+AE02JUF bYC44dEKkcRLic0lvfL t8GsWxEVRxOQC9pIevE Mffv2UxGWKyA79apKPp c2U6 (more content not included)... Normal [facility] .Interpretation:on HCV Ab IA Ql Comment Invalid Interpretation Code [facility] Comment on above: Result Comment: Nega tive Not infected with HCV, unless recent infection is suspected or other evidence exists to indicate HCV infection. Performed at: [facility] [address] [place] [address] [id number] PhD Madie Ansari Performed By: #### 1 [id number] #### [facility] [address] [place] [id number] HCV Antibody RFX to Quant PC Shay 09-21-2022 HCV Ab Signal/Cutoff IA [Rel units/Vol] 0.1 s/co ratio Invalid Interpretation Code 0.0-0.9 [facility] Comment on above: Result Comment: Perf ormed at: [facility] [address] [place] [address] [id number] PhD Madie Ansari Performed By: #### 1 [id number] #### [facility] [address] [place] [address] CBC w/Indiceson 09-20-2022 Erythrocyte distribution width (RBC) [Ratio] 14.1 % Normal 10.9-14.2 [facility] Comment on above: Performed By: #### 1 [id number], [id number] #### [facility] [address] [place] [address] Hematocrit (Bld) [Volume fraction] 38.5 % Normal 34.0-46.0 [facility] Comment on above: Performed By: #### 1 [id number], [id number], [id number], 3840955, 2958749, [id number], [id number], [id number] #### [facility] [address] [place] [address] Hemoglobin (Bld) [Mass/Vol] 12.5 g/dL Normal 12.0-16.0 [facility] Comment on above: Performed By: #### 1 [id number], [id number], 9924917, 0957993, 2801140, [id number], [id number], [id number] #### [facility] [address] [place] [address] MCH (RBC) [Entitic mass] 28.4 pg Normal 27.0-34.0 [facility] Comment on above: Performed By: #### 1 [id number], [id number], 0399158, 1063002, 7272875, [id number], [id number], 6942090 #### [facility] [address] [place] [address] MCHC (RBC) [Mass/Vol] 32.3 g/dL Normal 31.4-36.0 [facility] Comment on above: Performed By: #### 1 [id number], [id number], 9404790, 3547555, 2442728, [id number], [id number], [id number] #### [facility] [address] [place] [address] MCV (RBC) [Entitic vol] 87.7 fL Normal 80.0-100.0 [facility] Comment on above: Performed By: #### 1 [id number], [id number], 6094800, 9638791, 7779677, [id number], [id number], 0177806 #### [facility] [address] [place] [address] Platelet mean volume (Bld) [Entitic vol] 8.8 fL Normal 6.4-10.8 [facility] Comment on above: Performed By: #### 1 [id number], [id number], 1140311, 5543755, 8857764, [id number], [id number], 9322061 #### [facility] [address] [place] [address] 41925 Platelets (Bld) [#/Vol] 270.0 E9/L Normal 150.0-500.0 [facility] Comment on above: Performed By: #### 1 [id number], [id number], 5211858, 9091359, 7312338, [id number], [id number], 2091275 #### [facility] [address] [place] [address] 12144 RBC (Bld) [#/Vol] 4.4 E12/L Normal 4.3-5.9 [facility] Comment on above: Performed By: #### 1 2357690, 589855959, 2055537, 1309850, 3526508, 0654839139, [id number], 6273280 #### [facility] [address] [place] [address] 16355 WBC corrected for nucl RBC Auto (Bld) [#/Vol] 6.5 E9/L Normal 4.0-11.0 [facility] Comment on above: Performed By: #### 1 0626664, [id number], 7910498, 7839540, 8187658, 9901771632, 5084009979, 0683790 #### [facility] [address] [place] [id number] CHEMISTRYOrdered By: SYSTEM SYSTEM on 09-20-2022 25-hydroxyvitamin D3 [Mass/Vol] 21.9 ng/mL Low 30.0 - 100.0 ng/mL [facility] Albumin [Mass/Vol] 4.6 g/dL Normal 3.3 - 5.0 gm/dL [facility] Albumin/Globulin [Mass ratio] 1.4 {ratio} Normal 1.1 - 2.2 [facility] ALP [Catalytic activity/Vol] 53 [iU]/d Normal 21 - 98 Int._Unit/L [facility] ALT No additional P-5'-P [Catalytic activity/Vol] 11 [iU]/d Normal 6 - 46 Int._Unit/L [facility] Anion gap [Moles/Vol] 8 mmol/L Normal 6 - 16 mEq/L [facility] AST [Catalytic activity/Vol] 19 [iU]/d Normal 5 - 43 Int._Unit/L [facility] Bilirubin [Mass/Vol] 0.9 mg/dL Normal 0.0 - 1 .1 mg/dL [facility] Calcium [Mass/Vol] 9.1 mg/dL Normal 8.9 - 11. 1 mg/dL [facility] Chloride [Moles/Vol] 107 mmol/L Normal 101 - 1 11 mmol/L [facility] Cholesterol [Mass/Vol] 196 mg/dL Normal 120 - 200 mg/dL [facility] Cholesterol in HDL [Mass/Vol] 79 mg/dL Invalid Interpretation Code [facility] Cholesterol in LDL [Mass/Vol] 110 mg/dL Normal <=129mg/dL [facility] Cholesterol in VLDL [Mass/Vol] 6 mg/dL Low 7 - 40 mg/dL [facility] CO2 [Moles/Vol] 26 mmol/L Normal 21 - 31 mmol/L [facility] Creatinine [Mass/Vol] 0.5 mg/dL Normal 0.5 - 1.3 mg/dL [facility] GFR/1.73 sq M.predicted among blacks MDRD (S/P/Bld) [Vol rate/Area] mL/min/1.73 m2 Normal >=59mL/min/1. 73 m2 [facility] [place] Chem S GFR/1.73 sq M.predicted among non-blacks MDRD (S/P/Bld) [Vol rate/Area] mL/min/1.73 m2 Normal >=59mL/min/1. 73 m2 [facility] [place] Chem S Globulin (S) [Mass/Vol] 3.2 g/dL Normal 1.4 - 4.0 gm/dL [facility] Glucose [Mass/Vol] 96 mg/dL Normal 55 - 199 mg/dL [facility] Potassium [Moles/Vol] 3.6 mmol/L Normal 3.5 - 5.3 mmol/L [facility] Protein [Mass/Vol] 7.8 g/dL Normal 6.0 - 7.8 gm/dL [facility] Sodium [Moles/Vol] 137 mmol/L Normal 135 - 145 mmol/L [facility] Triglyceride [Mass/Vol] 32 mg/dL Normal <=149mg/dL [facility] TSH Qn 1.73 m[IU]/L Normal 0.34 - 5.60 mcIU/mL [facility] Urea nitrogen [Mass/Vol] 15 mg/dL Normal 5 - 21 mg/dL [facility] Urea nitrogen/Creatinine [Mass ratio] 30 mg/mg High 10 - 20 [facility] CMPon 09-20-2022 Anion gap [Moles/Vol] 8 mmol/L Normal 6-16 [facility] Comment on above: Performed By: #### 1 [id number], [id number], 0026957, 1113741, 8120172, 6625657958, 3256540914, 6737170 #### [facility] [address] [place] [address] Calcium [Mass/Vol] 9.1 mg/dL Normal 8.9-11.1 [facility] Comment on above: Performed By: #### 1 0995344, 084015114, 8199843, 8217385, 0331983, 1686134673, 6683261649, 8542413 #### [facility] [address] [place] [address] Chloride [Moles/Vol] 107 mmol/L Normal 101-111 [facility] Comment on above: Performed By: #### 1 3329106, 782393412, 0842806, 5580386, 7538892, 9146342361, 0164738948, 9196960 #### [facility] [address] [place] [address] CO2 [Moles/Vol] 26 mmol/L Normal 21-31 [facility] Comment on above: Performed By: #### 1 3254970, 423404137, 5121019, 3924020, 2115660, 7515283931, 9668331383, 6047081 #### [facility] [address] [place] [address] Potassium [Moles/Vol] 3.6 mmol/L Normal 3.5-5.3 [facility] Comment on above: Performed By: #### 1 2573635, 990510582, 1800835, 4064409, 3468242, 4421680152, 3982074193, 9508387 #### [facility] [address] [place] [address] Sodium [Moles/Vol] 137 mmol/L Normal 135-145 [facility] Comment on above: Performed By: #### 1 1679662, 999963471, 5870510, 7710200, 1797603, 5752558151, 4581146139, 6062582 #### [facility] [address] [place] [address] Albumin [Mass/Vol] 4.6 g/dL Normal 3.3-5.0 [facility] Comment on above: Performed By: #### 1 5349358, 167112476, 6995621, 0622299, 8532097, 1078573707, 0799479147, 1681891 #### [facility] [address] [place] [address] Albumin/Globulin (S) [Mass conc ratio] 1.4 Normal 1.1-2.2 [facility] Comment on above: Performed By: #### 1 0569987, 547680388, 2051461, 3063995, 3741692, 7272518781, 0929858105, 5057693 #### [facility] [address] [place] [address] ALP [Catalytic activity/Vol] 53 Int._Unit/L Normal 21-98 [facility] Comment on above: Performed By: #### 1 7191968, 435205999, 4063173, 6936375, 9741114, 1951361525, 1687412934, 0626022 #### [facility] [address] [place] [address] ALT No additional P-5'-P [Catalytic activity/Vol] 11 Int._Unit/L Normal 6-46 [facility] Comment on above: Performed By: #### 1 4484177, 420490964, 7244765, 0806256, 1889565, 3721978950, 3785755494, 2721695 #### [facility] [address] [place] [address] AST [Catalytic activity/Vol] 19 Int._Unit/L Normal 5-43 [facility] Comment on above: Performed By: #### 1 2557190, 978866132, 1175741, 9206746, 4967777, 6806562049, 8151563586, 7285960 #### [facility] [address] [place] [address] Bilirubin [Mass/Vol] 0.9 mg/dL Normal 0.0-1.1 [facility] Comment on above: Performed By: #### 1 2545745, 583552279, 6202986, 5118379, 8945086, 2760609514, 1392611848, 8118613 #### [facility] [address] [place] [address] Creatinine [Mass/Vol] 0.5 mg/dL Normal 0.5-1.3 [facility] Comment on above: Performed By: #### 1 7874380, 633163486, 4241241, 8069003, 3858898, 8161317476, 1041107036, 3761930 #### [facility] [address] [place] [address] Globulin (S) [Mass/Vol] 3.2 g/dL Normal 1.4-4.0 [facility] Comment on above: Performed By: #### 1 8713767, 371692621, 3504812, 3542387, 0506826, 9633531579, 9547992519, 7655784 #### [facility] [address] [place] [address] Glucose [Mass/Vol] 96 mg/dL Normal 55-199 [facility] Comment on above: Result Comment: If t his glucose result represents a fasting glucose, interpretation should refer to the following reference range: 55-99 mg/dL Performed By: #### 1 9772939, 699310977, 6514055, 0334581, 2970588, 2655403398, 5181787710, 5911833 #### [facility] [address] [place] [address] Protein [Mass/Vol] 7.8 g/dL Normal 6.0-7.8 [facility] Comment on above: Performed By: #### 1 2080794, 112048773, 9735444, 5935226, 1654638, 8901320002, 3060612351, 2155873 #### [facility] [address] [place] [address] Urea nitrogen [Mass/Vol] 15 mg/dL Normal 5-21 [facility] Comment on above: Performed By: #### 1 4813294, 004299598, 6147937, 7051881, 4527560, 5894922068, 7929377605, 0138874 #### [facility] [address] [place] [address] Urea nitrogen/Creatinine [Mass ratio] 30 No Units High 10-20 [facility] Comment on above: Performed By: #### 1 5598858, 708734524, 5169911, 0714140, 9203384, 3438013754, 2340762916, 3426699 #### [facility] [address] [place] [address] Consent for Treatmenton Consent for Treatment [id number]#[id number]:127 Normal [facility] HEMATOLOGYOrdered By: Kristine Page on 09-20-2022 Erythrocyte distribution width (RBC) [Ratio] 14.1 % Normal 10.9 - 14.2 % [facility] Hematocrit (Bld) [Volume fraction] 38.5 % Normal 34.0 - 46.0 % [facility] Hemoglobin (Bld) [Mass/Vol] 12.5 g/dL Normal 12.0 - 16.0 gm/dL [facility] MCH (RBC) [Entitic mass] 28.4 pg Normal 27.0 - 34.0 pg [facility] MCHC (RBC) [Mass/Vol] 32.3 g/dL Normal 31.4 - 36.0 gm/dL [facility] MCV (RBC) [Entitic vol] 87.7 fL Normal 80.0 - 100.0 fL [facility] Platelet mean volume (Bld) [Entitic vol] 8.8 fL Normal 6.4 - 10.8 fL [facility]eAuto[facility] Platelets (Bld) [#/Vol] 270.0 E9/L Normal 150.0 - 500.0 E9/L [facility] RBC (Bld) [#/Vol] 4.4 E12/L Normal 4.3 - 5.9 E12/L [facility] WBC corrected for nucl RBC Auto (Bld) [#/Vol] 6.5 E9/L Normal 4.0 - 11.0 E9/L [facility] Lipid Panelon 09-20-2022 Cholesterol [Mass/Vol] 196 mg/dL Normal 120-200 [facility] Comment on above: Performed By: #### 1 3074979, 474743349, 0784619, 5531554, 7078436, 7855604372, 8513798344, 3401780 #### [facility] [address] [place] [address] Cholesterol in HDL [Mass/Vol] 79 mg/dL Invalid Interpretation Code [facility] Comment on above: Result Comment: HDL > or equal to 60 mg/dL: Low cardiovascular risk HDL < 40 mg/dL : High cardiovascular risk Performed By: #### 1 3416260, 685959541, 0971174, 5779876, 6684851, 5694892929, 8250064513, 8943039 #### [facility] [address] [place] [address] Cholesterol in LDL [Mass/Vol] 110 mg/dL Normal <=129 [facility] Comment on above: Performed By: #### 1 4979054, 387287605, 8228612, 9179260, 0297243, 2107167137, 6904764097, 9634803 #### [facility] [address] [place] [address] Cholesterol in VLDL [Mass/Vol] 6 mg/dL Low 7-40 [facility] Comment on above: Performed By: #### 1 6401711, 003365199, 0402344, 1385183, 8694247, 4380884049, 3319299507, 0173295 #### [facility] [address] [place] [address] Triglyceride [Mass/Vol] 32 mg/dL Normal <=149 [facility] Comment on above: Performed By: #### 1 7759748, 068053559, 1814849, 6492030, 9091214, 4156985349, 0659483697, 8994005 #### [facility] [address] [place] [address] Physician Orderon 09-20-2022 Physician Order [id number] 251#1.00CD:127 Normal [facility] TSHon 09-20-2022 TSH Qn 1.73 m[IU]/L Normal 0.34-5.60 [facility] Comment on above: Performed By: #### 1 1715826, 706466827, 8256255, 1933271, 8415053, 9493030678, 7063732342, 5905874 #### [facility] [address] [place] [address] Vitamin D 25 Hydroxyon 09-20 25-hydroxyvitamin D3 [Mass/Vol] 21.9 ng/mL Low 30.0-100.0 [facility] Comment on above: Result Comment: Vit medeiros D deficiency has been defined as a level of serum 25-OH vitamin D less than 20 ng/mL (1,2) by the [place] [employer] and an Endocrine Society practice guideline. The Endocrine Society further defined vitamin D insufficiency as a level between 21 and 29 ng/mL (2). 1. IOM ([place] of [employer]). 2010. Dietary reference intakes for calcium and D. [place]: The National Academies Press. 2. Maye MF, Tiff SLATER, Alison TIMMONS, et al. Evaluation, treatment, and prevention of vitamin D deficiency: an Endocrine Society clinical practice guideline. JCEM. 2010; 96 (7):1911-30. Performed By: #### 1 1312018, 792951641, 4126088, 3706240, 6694474, 0533810395, 6347135753, 5199994 #### [facility] [address] [place] [address] eGFRon 09-20-2022 GFR/1.73 sq M.predicted among blacks MDRD (S/P/Bld) [Vol rate/Area] mL/min/{1.73_m2} Normal >=59 [facility] Comment on above: Order Comment: Order added by Discern Expert. Result Comment: eGFR is race adjusted. AA=. Performed By: #### 1 6338390, 192488825, 2451250, 7867207, 5230493, 6292273328, 1594866009, 5603976 #### [facility] [address] [place] [address] GFR/1.73 sq M.predicted among non-blacks MDRD (S/P/Bld) [Vol rate/Area] mL/min/{1.73_m2} Normal >=59 [facility] Comment on above: Order Comment: Order added by Discern Expert. Result Comment: Customer Care Specialist federico kidney disease could be indicated at eGFR's of less than 60 mL/min/1.73m2. Kidney failure is indicated at less than 15 mL/min/1.73m2. Performed By: #### 1 3531445, 250775392, 3278315, 8496119, 4278258, 8117502693, 8600390327, 3850587 #### [facility] [address] [place] [address] Formson 06-19-2022 Forms [id number]#[id number]:127 Normal [facility] Ambulatory Visit Summaryon 0 06-18-2022 Ambulatory Visit Summary KAREEM MEYER :1985 Visit Date:06/18/2022 Ambulatory Visit Instructions Your Diagnosis Anxiety Your Care Team Attending Physician - Heidy BALLESTEROS CNP Primary Care Physician - Heidy BALLESTEROS CNP This Is Your Medications List alprazolam (alprazolam 0.5 mg oral tablet, disintegrating) propranolol (propranolol 20 mg Tab) Contact prescribing physician if questions or concerns ferrous sulfate (Slow Release Iron 45 mg oral tablet, extended release) ibuprofen (ibuprofen 600 mg Tab) levonorgestrel (Liletta 52 mg IUD) Procedures Performed Extraction of wisdom tooth (2013). Discharge Vitals Temperature (Oral) 36.8 ?C Heart Rate (Peripheral) 118 Blood Pressure 118/76 Height 165 cm Height 165.0 cm Weight 49.5 kg Weight 49.5 kg BMI 18.18 Medications What How Much When Instructions New alprazolam (alprazolam 0.5 mg oral tablet, disintegrating) 1 Tablets By Mouth 3 times a day as needed for for anxiety OARRS reviewed; 10 days supply; DX F41.9 Pickup at [facility] #[id number] New propranolol (propranolol 20 mg Tab) 1 Tablets By Mouth 3 times a day Take an hour before pivotal event Pickup at [facility] #[id number] Unchanged ferrous sulfate (Slow Release Iron 45 mg oral tablet, extended release) Contact prescribing physician if questions or concerns Unchanged ibuprofen (ibuprofen 600 mg Tab) 1 Tablets By Mouth Every 6 hours Contact prescribing physician if questions or concerns Unchanged levonorgestrel (Liletta 52 mg IUD) 1 Each Intrauteral Once Contact prescribing physician if questions or concerns Pharmacy Information [facility] #[id number]: [address] [place], [place] [phone] Medications and Immunizations Administered Not Given influenza virus vaccine, inactivated, Patient Refuses Allergies No Known Allergies Problems Ongoing - Any problem that you are currently receiving treatment for. Adult BMI <19 kg/sq m Supervision of normal intrauterine in multigravida in second trimester Historical - Any problem that you are no longer receiving treatment for. Group B streptococcus Group B streptococcus Normal [facility] Family Medicine Office/Clini c Noteon 06-18-2022 Family Medicine Office/Clinic Note Chief Complaint Patient presents for anxiety, was diagnosed with OCD 10 years ago or longer. History of Present Illness Presents today as a new pt to establish care and to discuss anxiety. She states she was diagnosed with OCD 10 years ago or longer. She has a fear of germs. She did go through therapy and felt like her OCD has been under good control. She feels her symptoms are under good control in her daily life now, but she has trouble in big cities . She is contemplating a trip to [place] and this is making her anxiety/OCD much worse. Her has an opportunity to go to [place] and she would like to go with him but this is really triggering her as well. Review of Systems PHQ Score Initial Depression Screen Score: 0 Constitutional: no fever, no chills Respiratory: no shortness of breath Cardiovascular: no chest pain, no palpitations Gastrointestinal: no nausea, no vomiting, no diarrhea Neurologic: no headache, no dizziness Psychiatric: see depression screen. admits anxiety/OCD Physical Exam Vitals & Measurements T: 36.8 ?C(Oral) HR: 118(Peripheral) BP: 118/76 SpO2: 91% HT: 165 cm HT: 165.0 cm WT: 49.5 kg WT: 49.5 kg BMI: 18.18 General: Well developed, well nourished, in no acute distress Eyes: Conjunctivae and sclera are clear Ears: Hearing grossly normal to conversational speech Lungs: Normal respiratory effort and clear to auscultation Cardio: HRR, no murmur Musculoskeletal: Ambulates unassisted; gait steady Neurologic: Grossly normal Skin: No rashes, ulcerations, or suspicious lesions, no excessive bruising visible with clothes on Mental Status: Alert and oriented x3. Normal mood and affect Assessment/Plan 1. Anxiety (F41.9: Anxiety disorder, unspecified) OK to use CBD oil as desired when anxiety starts If no relief use propranolol and take as directed As a last resort can take the alprazolam as directed 2. OCD (obsessive compulsive disorder) (F42.9: Obsessive-compulsiv e disorder, unspecified) OK to use CBD oil as desired when anxiety starts If no relief use propranolol and take as directed As a last resort can take the alprazolam as directed OARRS reviewed and no suspicious activity is noted Directed to keep medication in a safe, secure location, preferably locked 3. Adult BMI <19 kg/sq m (Z68.1: Body mass index [BMI] 19.9 or less, adult) The standard range for ages 18 and older is >=18.5 and < 25 kg/m2. Your BMI today was below this range and falls in the underweight category. We can offer counselling, referral, and/or medical support in addressing this problem. Your BMI and weight management will be followed at subsequent visits. Orders: alprazolam, 0.5 mg = 1 tab(s), Oral, TID, PRN for anxiety, OARRS reviewed; 10 days supply; DX F41.9, # 20 tab(s), Refills(s) 0, Pharmacy: [facility] #[id number], 165, cm, 06/18/22 10:03:00 EDT, Height/Length Dosing, 49.5, kg, 06/18/22 10:03:00 EDT, Weight Do... propranolol, 20 mg = 1 tab(s), Oral, TID, Take an hour before pivotal event, # 90 tab(s), Refills(s) 0, Pharmacy: [facility] #[id number], 165, cm, 06/18/22 10:03:00 EDT, Height/Length Dosing, 49.5, kg, 06/18/22 10:03:00 EDT, Weight Dosing Follow-up With When Contact Information Heidy BALLESTEROS CNP Only if needed [address] [address]- Additional Instructions: Patient Education BMI for Adults Managing Anxiety, Adult Problem List/Past Medical History Ongoing Adult BMI <19 kg/sq m Supervision of normal intrauterine in multigravida in second trimester Historical Group B streptococcus Group B streptococcus Procedure/Surgical History Extraction of wisdom tooth (2013). Medications alprazolam 0.5 mg oral tablet, disintegrating, 0.5 mg= 1 tab(s), Oral, TID, PRN ibuprofen 600 mg Tab, 600 mg= 1 tab(s), Oral, q6hr Liletta 52 mg IUD, 1 EA, IntraUteral, Once propranolol 20 mg Tab, 20 mg= 1 tab(s), Oral, TID Slow Release Iron 45 mg oral tablet, extended release Allergies No Known Allergies Social History Alcohol - Denies Alcohol Use, 08/30/2015 Current, Wine, Liquor, 1-2 times per year, 1 drinks/episode average. 2.00 drinks/episode maximum. Started age 23 Years. Previous treatment: None. Alcohol use interferes with work or home: No. Drinks more than intended: No. Others hurt by drinking: No. Ready to change: No. 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 Highest education level: University degree(s)., 08/30/2015 Exercise - Does not exercise, 07/14/2018 Home/Environment - Low Risk, 08/30/2015 Lives with Spouse. Living situation: Home/Independent. Alcohol abuse in household: No. Substance abuse in household: No. Smoker in household: No. Injuries/Abuse/Negl ect in household: No. Feels unsafe (more content not included)... Normal [facility] Comment on above: Result Comment: Elec tronically Signed By: Heidy BALLESTEROS CNP\.br\Date and Time Signed: 06/18/22 10:46 EDT Patient Educationon 06-18-20 22 Patient Education Mental and Behavioral Health Managing Anxiety, Adult After being diagnosed with an anxiety disorder, you may be relieved to know why you have felt or behaved a certain way. You may also feel overwhelmed about the treatment ahead and what it will mean for your life. With care and support, you can manage this condition and recover from it. How to manage lifestyle changes Managing stress and anxiety Stress is your body's reaction to life changes and events, both good and bad. Most stress will last just a few hours, but stress can be ongoing and can lead to more than just stress. Although stress can play a major role in anxiety, it is not the same as anxiety. Stress is usually caused by something external, such as a deadline, test, or competition. Stress normally passes after the triggering event has ended. Anxiety is caused by something internal, such as imagining a terrible outcome or worrying that something will go wrong that will devastate you. Anxiety often does not go away even after the triggering event is over, and it can become long-term (chronic) worry. It is important to understand the differences between stress and anxiety and to manage your stress effectively so that it does not lead to an anxious response. Talk with your health care provider or a counselor to learn more about reducing anxiety and stress. He or she may suggest tension reduction techniques, such as: ? Music therapy. This can include creating or listening to music that you enjoy and that inspires you. ? Mindfulness-based meditation. This involves being aware of your normal breaths while not trying to control your breathing. It can be done while sitting or walking. ? Centering prayer. This involves focusing on a word, phrase, or sacred image that means something to you and brings you peace. ? Deep breathing. To do this, expand your stomach and inhale slowly through your nose. Hold your breath for 3?5 seconds. Then exhale slowly, letting your stomach muscles relax. ? Self-talk. This involves identifying thought patterns that lead to anxiety reactions and changing those patterns. ? Muscle relaxation. This involves tensing muscles and then relaxing them. Choose a tension reduction technique that suits your lifestyle and personality. These techniques take time and practice. Set aside 5?15 minutes a day to do them. Therapists can offer counseling and training in these techniques. The training to help with anxiety may be covered by some insurance plans. Other things you can do to manage stress and anxiety include: ? Keeping a stress/anxiety diary. This can help you learn what triggers your reaction and then learn ways to manage your response. ? Thinking about how you react to certain situations. You may not be able to control everything, but you can control your response. ? Making time for activities that help you relax and not feeling guilty about spending your time in this way. ? Visual imagery and yoga can help you stay calm and relax. Medicines Medicines can help ease symptoms. Medicines for anxiety include: ? Anti-anxiety drugs. ? Antidepressants. Medicines are often used as a primary treatment for anxiety disorder. Medicines will be prescribed by a health care provider. When used together, medicines, psychotherapy, and tension reduction techniques may be the most effective treatment. Relationships Relationships can play a big part in helping you recover. Try to spend more time connecting with trusted friends and family members. Consider going to couples counseling, taking family education classes, or going to family therapy. Therapy can help you and others better understand your condition. How to recognize changes in your anxiety Everyone responds differently to treatment for anxiety. Recovery from anxiety happens when symptoms decrease and stop interfering with your daily activities at home or work. This may mean that you will start to: ? Have better concentration and focus. Worry will interfere less in your daily thinking. ? Sleep better. ? Be less irritable. ? Have more energy. ? Have improved memory. It is important to recognize when your condition is getting worse. Contact your health care provider if your symptoms interfere with home or work and you feel like your condition is not improving. Follow these instructions at home: Activity ? Exercise. Most adults should do the following: ? Exercise for at least 150 minutes each week. The exercise should increase your heart rate and make you sweat (moderate-intensity exercise). ? Strengthening exercises at least twice a week. ? Get the right amount and quality of sleep. Most adults need 7?9 hours of sleep each night. Lifestyle ? Eat a healthy diet that includes plenty of vegetables, fruits, whole grains, low-fat dairy products, and lean protein. Do not eat a lot of foods that are high in solid fats, added sugars, or salt. ? Horace (more content not included)... Normal [facility] Coding Summary.on 04-25-2022 Coding Summary. [id number] NRz6oGj+PGhlYWQ+PE1 AZOFaG31yvVPbgS4IC3 iYAK2FKXNGKHBQAW7WU V9baFA7XTleT6TjueHr MvutrUPiAY35FXd8NUV 7aBfwTDhspL9zxKIdW6 v4NwHoVW40nW67FMcrF XQkElR4HjQdrllflHZb P3lsZqHweFVbJgi+PHR hYmxlIHdpZHRoPScxMD UwMoQfqGsjGP1yBd0fA GVyLWNvbGxhcHNlOiBj r0xgFUOxJNskKD5lcQq iJ9PyeHH9XDSwu1k7Ub 48dHI+JDZqQFY9cQmlY Jwlp066SfCbo8cpPBP2 pYAzXYuhLIE9J90bk4O 0WESrXHDhPDS2jSL1cB 1syOsmstrxJ6NknGHpO oO9ZDL1gMSuhL2pdKev qxcagJ0vBqk+U25JPM0 JETQTBM5KYdg2X7XuPh wvdHI+CD43CNHqJD63f KHvoEBas5fsgAa6UlJh VLOgBYZ5iYekVKkua0G cJFOqE77kvVLim7H5WM GbbDqwtSNkDsLzlQC7s O4nJUepukkiz5gukakh Tstyx4icel70uJ17Q06 pLOddJYZgIYH8NNOxGC ZmwCtsio6ygG1qAj7+I Otyt2bld5mepOo8CmSq QLZrwjDzkYxiJOB8e1E rNw90G0GfrLehm8HcAx w6gs24lNVle8D2vQZ8H GtdNXQmxN8rDOgvKnJ4 WYDtWnYeyM31qNUqDZi uDd2orCnqiWefKK4rJY VijretDKVdfE9uKSBbh ZRvqOizPC6cFETpqesn v143UwYvAZS1UEIavHD rV0OdlR9bMsSeXOGkUA FrH3MrpCGpOExuC256F FppAgU4BKTfzsXdD5Ln NIDnsKmzHhT0c4Q4Ys9 Lu0UyqbgwUJH3EChpLA W3EbO3QkJvNpE3W8ZeO cu7BZQaaWjcUF6mB5Zv EZVzrugwxagyrDY1VQG tIQPglV97cALtJBfeZm 3nd1A3y949VHTrTLJce T73Fo9xiYyjBBXfgYJK kI8yrynjr0owyixjLrU bQHZdIIk1LNh6QPNugC prFlObQNL8ZfU4UWS1g EYnfM4daJwhlwndzF8x Oyc+M04naR9bSGZ0POL 7jykvJSOxadLfJG41IQ 36W6EyDwogePBpuTJ+P WGlzaCtdLhjAF7jOgHj v3mvw3RkMQldK9DyGBK eWFhjFzv4BFFiDUA0cW H0mZ7gCDBlIOogt1I6w RD5X7HkuiFgcs6ez8vg UNFmHItaF54dlODnx0V 7EOGuyMY2GUGghAhdGh RmkF26Rjb+PGNvbGdyb 5PkXcnie3jdk0xcrCx2 IjMwJSIgdmFsaWduPSJ 7s4YfDw45M04sMVevCF RoPSIxNSUiIHZhbGlnb t1lnX5wQf4+PGNvbCB3 qST5bK5fUOPnGlD6JEk kD220ZlGgcLIoZtexa2 sfe0hayHq4FvYeQPHfg oPnfWqpZUL7e8ExZi06 Q24fGXkxXBKpOEUtDJC iNPCfnKdptl4qxR1vMh 8+NM3sp3xfro43rN89f HI+ZRUuDMS4dGpwKTxb ESDrfS2iDHpcWoV7OMD qQnUtrF22fDUoHKgwNd 1uaOwjrRepFK4lZUYbq jgsh171IjXgb2iqEOBj yWNtDQieYEN0I36bn6U 2WVKqCUJqOZJ6eLL4xY 1hbGlnbjogbGVmdDsgd yWnuPfxTTtpIZmaQ478 IHRvcDsnPlBhdGllbnQ oDqDvYKm7S0CmZtr5PS ZjeYdsOV8mjWEyUBjrM z6iuIpqtNtpAE4bFQXj dsqhv694VpUne6lqUVP veJSeSPdgVPN6Z64co1 V0ETAzNPHgCGH7hSM6k F3bnPenrtarkGQsrIcm rvOjdGyiMOjuLPbkH20 6IHRvcDsnPkJpcnRoIE TriMI2YS78MP66tJNmq 3Z0hFA4F7DpGCDxsiec dxxeyLU1ZFWxOCGgpQ9 9Qi7ixBopHv9rAHQkBU S3IRNtzMZnE4RqzX8kH iAyVVGiGAXmT4NefBLi LVsyL925CWdkRjH2JDT dbqHpY6LcGMAhyGtoOf Z8j0U0Oh9JU8K2FK64W F83oKVvj7O0kRS5P6Ah WVEkscxsajmlgZB6TEZ yCZYheX30Bu6iyTlaPx 7oPWDeNWN0CKXzdHXsU 5DarF1qDkIwIWOqNZPi X2EfkAMjKTltI576JBl oBaU1OPWwxdFeH3AbHL TmeYuyCqX3l8O7Wx5OQ Co4DO10IN88jDWmj2W6 oSA4A7FhCNVmexummwt xkOM7GUOjVYMnmC97Aq 0jdBkxAm4yCAAyTAV5B OHlwEPfG3FznU3qHnIm DLAaBAYaW9BujKEyEMm dL179ZKpwUrB1MDWjas FvV3FhEUXucYhqIfH5c 0E0Fi9UOKJmJN19TWY8 aUA7FW24SS44J0EnScq vdGFibGU+PHRhYmxlIH dpZHRoPScxMDAlJyBzd FagII2nJw0iERMrEVFo dJbahPGvWyNmf8wyOTU gEMnrIT1qpDleK9TcgV F5JTFfq4h4Sj19L64vI 3JvdXA+QPAexJX9lGY7 jP2lHvHbFgW5FRigI64 6LtKnxALeRpztc8jfy4 ydxLb3YmP8EAVqfbHlw ZetFNF0j7OsZe59X99o IHdpZHRoPSIxNSUiIHZ qaBvuve4exD7sUz1+PG VbgCB5oWM4fE3iScVzP lT7RJwiN361UiXrqSQp Abqkr0wgy0zszRl3AdE rPXElunBpaSupJCN2g7 MhSs19W9HbmWphu8YaL im5cf57kFAsz0L3yBN3 W0CrLDCvjssxoSAchOd jVY7bTNZnypxaQYYcvL 6zEZWiH0f1KuYxVfS8O AczV0VlzcV2UAFltNYv UIuhYHM1F94vx0E0HOQ bJAIkKCA7ePS0tO8akI lnbjogbGVmdDsgdmVyd WmzIVeyGLauJ320GIJg fGpcHYCwhW6zNZBptIB hzDeaWW9eWOTazpxnPi NURUlOLCBTVEFDWSBMP I09WF13zLOrz2A3mNW7 G9NfWFDspmwncujzeKW 6IEZzWMBdqF68yZYnOE wxRt4ir8W9x405YHZlS KKyrO87Cp1rtVyqPFCp wRKHiA4gksljy8khneu bUsMhIHFrTZx5CUr1HA JtcLazStOmTIY9PwU5U DH3xLOwlD2tmPiaelwg pI4kRjk+MDQvMjIvMTk 4NzwvdGQ+FURoIYB5iW odCYpzQZBfuN5mBNFtC 2y0QfMoZjF0PBumQ3Tt CTFcwxrpVq21zK8nAoA gIyB5LQvqV9WczpD1WN UpaKZnVEumIHB5K29jp 5B7FMJuHOQaIGV4nGB9 nW1vjFsxlqsabBIxmOt gdmVydGljYWwtYWxpZ2 83AQHaxLymDnX1VEdfH FPjAK67EC03eUPeg0C4 pSV7W8IbINDmypjysqi iqWI9GDFsQZPhsY18fR JcUOwuUk4qk6X3w552T QUeWQXgcJ68Da9vhPtx UGNjyWTPxH8mqvijg8c tbmkiSlHyNGKzRXa5PK x8LUYahTcqFxDpWSH8S iJ2QLC4cHXolM4euDrm pelhgE9hSwj+RmVtYWx kCA08IN15mMXpe4L3jT R5J7UgFGNuabzisvmxr SL0KHIcQWKsqQ12wRUx QSpyWj6km4M3b734CMS eXZNsoP74Km4tsMsxUT BwkDWQbN7zzrefv9lnf wztInSzXLDjOWj1LRp5 OKPkcYehNxFeUIB4QrP 2AFY0gEDbkM8lrPuqtl yiqL6mOxi+D3L4bUU4k WVudDwvdGQ+OF74iw86 V3LqHmvrZzc9ESKjROY 7fPL7vT6gJIRsNPohy7 J1yIY0X9KceeXrau5ju 4ubJWEoPGbkP16dzTAb l0N4UWVmjPG7VWEtnGl dKiMjzH01Njh+PGNvbG zsn4YfUmara6hap4vvd Ih8NmMjODNfybQngKbd QNF0h1HmTb74M17gJHs pZHRoPSIzMCUiIHZhbG dtsj4quT5dVr6+PGNvb YD5hZE6sL2pNuVuLfM0 ZVpdH397FwYrwRPnXtk ve2qce1oyqOb2BoJdYO NjetQynLvnQKY5n5IsJ p73M5ZyuBmgf6UoJcr8 pa63lSXhp0P3rZK2F7Q hZGRpbmctbGVmdDogMC 8oECIbdicsFSFntA8aX WBtW2s6RqEeXhM4ONlp V9IawtF7QSUfzVNxDPD fxWBEnP2hhxfzp2bawo ufWqRcPSJgIMa6KDa2A KBqnHqqJpTfGSM6EiG6 JSG0cZBlrP9wjEbbxlt ldH5iVzx+IVx5g8oljW DtNQ4vjIZ8RR80OB56i NJdl2I1uXB1R3AmOCSv fpldjokffLQ8OYSgBMU cbC50Hj3akYebFr9pBA JtZCG2DXHqcXIpC9Pgz N5iJrEkORXuHREqP2Iv bAWxOWyjL086NYovHsD 6CQRwviGwD6EaVANviE amIoU3t7N2Er7SFC62M N01LN20dRRjs9L3qNN8 T6CkACWizsbjekzdiUR 2YWSoQUAflN70Xw0uzE gyAw3qONOyVGR7SARkh GKrL7IdsI1zQdVoBVGn XLArG8OssKIvKQizN40 9KSsyRwR5WXOhioViC4 UhZJDqsUsqKxN1s3O2E p5HGm61LC06DR46gFDs v6K2bYG3Y2PtPOFmhjy vfawffKP7BTEbINOkvK 20Ga9jmXuxQg7nFQRyK XC5KGJpkSXkF3GwmF0e UbQyEKTmHLIaT3VyxOH uPUotF330QFetZeM8IL LdgfCjM4ZiMAKbiSngC oU0k1Y2Ag0YLSnbaci1 P2XfMradgVP+IX81QDN gMX29gJZndAOdu8xdaS c9NqFjANLoMLB4eNryH Badc2XiNAFmY00yaJOp c2U6 (more content not included)... Normal [facility] CBC w/Indiceson 04-12-2022 Erythrocyte distribution width (RBC) [Ratio] 13.1 % Normal 10.9-14.2 [facility] Comment on above: Performed By: #### 2 [id number], [id number], [id number] ####[address] [place] [address] Hematocrit (Bld) [Volume fraction] 37.5 % Normal 34.0-46.0 [facility] Comment on above: Performed By: #### 2 [id number], [id number], [id number] ####[address] [place] [address] Hemoglobin (Bld) [Mass/Vol] 12.8 g/dL Normal 12.0-16.0 [facility] Comment on above: Performed By: #### 2 [id number], [id number], [id number] ####[address] [place] [address] MCH (RBC) [Entitic mass] 31.0 pg Normal 27.0-34.0 [facility] Comment on above: Performed By: #### 2 [id number], [id number], [id number] ####[address] [place] [address] MCHC (RBC) [Mass/Vol] 34.0 g/dL Normal 31.4-36.0 [facility] Comment on above: Performed By: #### 2 444155, [id number], [id number] ####[address] [place] [address] MCV (RBC) [Entitic vol] 91.1 fL Normal 80.0-100.0 [facility] Comment on above: Performed By: #### 2 [id number], [id number], [id number] ####[facility] [address] [place] [address] Platelet mean volume (Bld) [Entitic vol] 8.2 fL Normal 6.4-10.8 [facility] Comment on above: Performed By: #### 2 [id number], [id number], [id number] ####[address] [place] [address] Platelets (Bld) [#/Vol] 249.0 E9/L Normal 150.0-500.0 [facility] Comment on above: Performed By: #### 2 [id number], [id number], [id number] ####[address] [place] [address] RBC (Bld) [#/Vol] 4.1 E12/L Low 4.3-5.9 [facility] Comment on above: Performed By: #### 2 472194, [id number], [id number] ####[address] [address] WBC corrected for nucl RBC Auto (Bld) [#/Vol] 9.0 E9/L Normal 4.0-11.0 [facility] Comment on above: Performed By: #### 2 [id number], [id number], [id number] ####[address] [address] CHEMISTRYOrdered By: SYSTEM SYSTEM on 04-12-2022 Free T4 [Mass/Vol] 0.90 ng/dL Normal 0.58 - 1. 64 ng/dL FT Remisol TSH Qn 0.93 m[IU]/L Normal 0.34 - 5.60 mcIU/mL [facility] Remisol Consent for Treatmenton 03-19 Consent for Treatment [id number]#[id number]:127 Normal [facility] Free T4on 04-12-2022 Free T4 [Mass/Vol] 0.90 ng/dL Normal 0.58-1.64 [facility] Comment on above: Performed By: #### 2 [id number], [id number], [id number] ####[facility] [address] [place] [address] HEMATOLOGYOrdered By: Janae Talbot on 04-12-2022 Erythrocyte distribution width (RBC) [Ratio] 13.1 % Normal 10.9 - 14.2 % [facility] HemeAutoSS Hematocrit (Bld) [Volume fraction] 37.5 % Normal 34.0 - 46.0 % [facility] HemeAutoSS Hemoglobin (Bld) [Mass/Vol] 12.8 g/dL Normal 12.0 - 16.0 gm/dL [facility] HemeAutoSS MCH (RBC) [Entitic mass] 31.0 pg Normal 27.0 - 34.0 pg [facility] HemeAutoSS MCHC (RBC) [Mass/Vol] 34.0 g/dL Normal 31.4 - 36.0 gm/dL [facility] HemeAutoSS MCV (RBC) [Entitic vol] 91.1 fL Normal 80.0 - 100.0 fL [facility] HemeAutoSS Platelet mean volume (Bld) [Entitic vol] 8.2 fL Normal 6.4 - 10.8 fL [facility] HemeAutoSS Platelets (Bld) [#/Vol] 249.0 E9/L Normal 150.0 - 500.0 E9/L [facility] HemeAutoSS RBC (Bld) [#/Vol] 4.1 E12/L Low 4.3 - 5.9 E12/L [facility] HemeAutoSS WBC corrected for nucl RBC Auto (Bld) [#/Vol] 9.0 E9/L Normal 4.0 - 11.0 E9/L [facility] HemeAutoSS Physician Orderon 04-12-2022 Physician Order [id number]:127 Normal [facility] TSHon 04-12-2022 TSH Qn 0.93 m[IU]/L Normal 0.34-5.60 [facility] Comment on above: Performed By: #### 2 [id number], [id number], [id number] ####[facility] [address] [place] [address] Vital Signs Date Time Vital Sign Value Performing Clinician Azael hercules 09-27-2022 13:26-0500 Body height 165.1 cm Lluvia Mike Work Phone: SQ[facility]ocxg[facility] Work Phone: 09-27-2022 13:26-0500 Body mass index (BMI) [Ratio] 17.81 kg/m2 Lluvia Dm Hubbarde Work Phone: NW-Dkgzrnsayq[address] Work Phone: 09-27-2022 13:26-0500 Body surface area Derived from formula 1.52 m2 Lluvia Mike Work Phone: JF-Hxbmysomci-Evs [address] Work Phone: 09-27-2022 13:26-0500 Body weight 48.54 kg Lluvia Mike Work Phone: OJ-Yojnckhisn-C[address] Work Phone: 09-27-2022 13:26-0500 Diastolic blood pressure 70 mm[Hg] Lluvia Mike Work Phone: SD-Jhoebsdeoe-Krv [address] Work Phone: 09-27-2022 13:26-0500 Heart rate 93 /min Lluvia Mike Work Phone: EK-Xjsfeftfth-Bgj [address] Work Phone: 09-27-2022 13:26-0500 SaO2% (BldA) [Mass fraction] 100 % Lluvia Hubbarde Work Phone: RH-Uy[address]ydbm-Doj [address] Work Phone: 09-27-2022 13:26-0500 Systolic blood pressure 112 mm[Hg] Lluvia H Rashid Work Phone: NT-T[address]zwn[address]umu[address]Zhi [address] Work Phone: 06-18-2022 09:57-0400 Blood Pressure Location Heidy BALLESTEROS [facility] 06-18-2022 09:57-0400 Body temperature 98.24 [degF] Heidy BALLESTEROS [facility] 06-18-2022 09:57-0400 Diastolic blood pressure 76 mm[Hg] Heidy BALLESTEROS [facility] 06-18-2022 09:57-0400 Heart rate 118 /min Heidy BALLESTEROS [facility] 06-18-2022 09:57-0400 SaO2% (BldA) [Mass fraction] 91 % Heidy BALLESTEROS [facility] 06-18-2022 09:57-0400 Systolic blood pressure 118 mm[Hg] Heidy BALLESTEROS [facility] Encounters Encounter Date Encounter Type Care Provider Facility Start: 08-17-2024 End: 08-17-2024 ambulatory HEBER LLAMAS Not Available Start: 03-19-2024 End: 03-19-2024 ambulatory DIANA RAYMUNDO Not Available Start: 11-20-2023 End: 11-20-2023 ambulatory DIANA BREANNE Not Available Start: 10-15-2023 End: 10-15-2023 ambulatory DIANA BREANNE Not Available Start: 10-08-2023 End: 10-09-2023 ambulatory HEBER LLAMAS Facility:[facility] Start: 03-08-2023 End: 2023 ambulatory HEBER LLAMAS Facility:[facility] Start: 03-08-2023 End: 03-08-[address] HEBER LLAMAS . Facility: Start: 03-01-2023 Encounter for other preprocedural examination DR HEBER LLAMAS . [facility] Start: 02-21-2023 End: 02-22-[address] HEBER LLAMAS . Facility:[facility] Start: 02-21-2023 End: 02-22-2023 Encounter for other preprocedural examination DR HEBER LLAMAS . Facility: Start: 01-10-2023 End: 01-11-2023 ambulatory HEBER LLAMAS Facility:[facility] Start: 12-22-2022 End: 12-23-[address] HEBER LLAMAS . Facility: Start: 12-12-2022 Chart Update Lluvia Dm Rashid Work Phone: [facility] Work Phone: Start: 10-16-2022 ambulatory Lluvia Rashid Facility:[id number] Start: 10-16-2022 Office consultation new/estab patient 60 min Lluvia H Rashid Work Phone: [facility] Work Phone: Start: 10-16-2022 ambulatory NAKIA ABAMARILIS CRABTREE Facility:[id number] Start: 09-27-2022 Office outpatient ne w 30 minutes Lluvia Mike Work Phone: [facility] Work Phone: Start: 09-27-2022 ambulatory Pt States None PCP Faci lity:[id number] Start: 09-20-2022 End: 09-21-2022 ambulatory Alexis Guardado Facility:[facility] [place] [facility] Start: 09-20-2022 End: 09-20-2022 Patient encounter procedure Alexis Guardado [facility] Start: 06-18-2022 End: 06-19-2022 ambulatory Heidy BALLESTEROS Facility:[facility] Start: 06-18-2022 End: 06-18-2022 Patient encounter procedure Heidy BALLESTEROS [facility] Start: 06-13-2022 ambulatory Alexis Guardado Facility:[facility] Start: 04-12-2022 End: 04-13-2022 ambulatory Alexsandra Chen Facility:[facility] [facility] Start: 04-12-2022 End: 04-12-2022 Patient encounter procedure Alexsandra Chen [facility] Procedures Date Procedure Procedure Detail Performing Clinician Start: 11-18-2013 Extraction of wisdom tooth Alexsandra Chen Plan of Treatment Date Care Activity Detail Author Start: 12-19-2022 NPV, Provider: Alvaro Land, Status: Pen, Time: 11:30 AM NPV, Provider: Alvaro Land, Status: Pen, Time: 11:30 AM [facility] Work Phone: Immunizations Immunization Date Immunization Notes Care Provider Fa marcin 10-17-2021 SARS-CoV-2 (COVID-19 ) mRNA-1273 vaccine Heidy BALLESTEROS [facility] 09-19-2021 SARS-CoV-2 (COVID-19 ) mRNA-1273 vaccine Heidynelly BALLESTEROS [facility] 10-05-2020 influenza virus vaccine, unspecified formulation Heidy BALLESTEROS [facility] 10-05-2020 Influenza, injectabl e, Madin [place] Canine Kidney, preservative free, quadrivalent Lluvia H Rashid Work Phone: [facility] Work Phone: 09-19-2019 influenza virus vaccine, unspecified formulation Heidy BALLESTEROS [facility] 09-19-2019 influenza, injectabl e, quadrivalent, contains preservative Lluvia H Rashid Work Phone: [facility] Work Phone: 08-31-2015 tetanus toxoid, reduced diphtheria toxoid, and acellular pertussis vaccine, adsorbed Alexsandra April [facility] NEGATED: Highlighted row has not occurred!06-18-2022 influenza virus vaccine, unspecified formulation Heidy BALLESTEROS [facility] Payers Date Payer Category Payer Unknown [id number] 1987 Unknown [id number] 2.16.8 [id number] 1987 Unknown [id number] 2.16.8 [id number] 1987 Unknown [id number] 2.16.8 40.1.275886.3.579.2.727 1987 Unknown [id number] 2.16.8 40.1.538975.3.579.2.727 1987 Unknown [id number] 2.16.8 40.1.223552.3.579.2.727 1987 Unknown [id number] 2.16. 840.1.636863.3.579.2.356 1987 Unknown [id number] 2.16. 840.1.323315.3.579.2.356 1987 Unknown [id number] 2.16. 840.1.499492.3.579.2.356 1987 Unknown [id number] 2.16.84 0.1.407279.3.579.2.593 1987 Unknown [id number] 2.16.84 0.1.036157.3.579.2.593 1987 Unknown [id number] 2.16.84 0.1.679501.3.579.2.593 1987 Unknown [id number] 2.16.84 0.1.243484.3.579.2.9 1987 Unknown [id number] 2.16.84 0.1.222822.3.579.2.9 1987 Unknown [id number] 2.16.840 .1.846458.3.579.2.9 1987 Unknown [id number] 2.16.840 .1.414998.3.579.2.1259 1959 Unknown [id number] Unknown [employer] Social History Date Type Detail Facility Start: 09-13-2021 End: 06-18-2022 Tobacco smoking status Never smoked tobacco (finding) [facility] Sex Assigned At Female [facility] Tobacco smoking status Never [facility] Functional Status Date Assessment Result Facility 06-18-2022 Functional Status N/A [facility] Clinical Note 03-08-2023 Note Date & Type Note Facility 03-08-2023 Note OPERATIVE NOTE OPERATION DATE: 03/08/2023 PROCEDURE: Robotic assisted laparoscopic bilateral salpingectomy with Dayanara endometrial ablation with removal of IUD. PREOPERATIVE DIAGNOSIS: POSTOPERATIVE DIAGNOSIS: ANESTHESIA: General. SURGEON: Heber Llamas D.O. MANAGER OF DISTRIBUTION: ROJELIO Del Valle BLOOD LOSS: 5 mL. URINE OUTPUT: Yellow and clear. FINDINGS: Normal appearing ovaries, uterus and tubes. Normal appearing uterine cavity. Both ostia seen. No gross evidence of polyp, fibroid or malignancy. SPECIMEN: Bilateral tubes. PROCEDURE: The patient was taken back to the OR where she was prepped and draped in the normal sterile fashion after being placed in the dorsal lithotomy position, after being placed under general anesthesia without difficulty. A weighted speculum was placed into the vagina. The anterior lip was grasped with a single tooth tenaculum. The patient was then sounded to approximated 9 cm. The patient's cervix was gently dilated using Hegar dilators. The hysteroscope was passed through the cervix into the uterus where both ostia were seen. No gross evidence of polyps, fibroids or malignancy. The cervical length was noted to be 4 cm. The total cavity length is 5 cm. The Dayanara ablation apparatus was set to approximately 4 cm in length. This was placed through the cervix and into the uterus. After the seal was tested, at that time the total ablation of 120 seconds was performed with the Dayanara without difficulty. All instruments were removed from the vagina. Excellent hemostasis noted. Sponge and lap count correct times 2. Patient taken to recovery in stable condition. The patient was taken back to the OR where she was prepped and draped in the normal sterile fashion after being placed in the dorsal lithotomy position, after being placed under general anesthesia without difficulty. A wet sponge stick was placed into the patient's vagina. Attention was then turned to the patient's abdomen, where a scalpel was used to make a small infraumbilical incision. The S retractors were then used to dissect the underlying layers until the fascia could be seen. The fascia was then grasped with Leonel clamps and tented up. A knife was then used to make a small incision to the fascia. The muscle was identified, at that time two sutures of #0 Vicryl on a GI needle was then used and placed through the fascia. The peritoneum was then identified and entered bluntly. The 10-4 Gracie was then placed into the patient's abdomen. This was confirmed with direct visualization of the bowel, using the laparoscope. The patient's abdomen was then insufflated using approximately 4 liters of CO2 gas. Survey of the patient's abdomen demonstrated normal appearing ovaries, uterus and tubes. A second and third lateral port, which was 7-8 in size and 5 mm in size, was then placed laterally after incision was made in the skin under direct visualization. The patient's tube on the patient's right side was identified. The tube was then tented up using a grasper. The LigaSure was used to transect and coagulate the mesosalpinx from the fimbriated end to the insertion at the uterus; the tube was amputated and removed in its entirety. Excellent hemostasis was noted. This was performed on the contralateral side as well. The lateral ports were then removed under direct visualization with excellent hemostasis. The abdomen was desufflated. All instruments were removed from the patient's abdomen. The fascia was closed using the #0 Vicryl on GI needle. The skin was closed using 4-0 Vicryl subcuticularly. All instruments were removed from the patient's vagina as well. The patient was taken out of the dorsal lithotomy position and placed in the supine position and taken to recovery in stable condition. Sponge, lap and needle counts were correct x2. [facility] Evaluation + Plan note 09-20-2022 Note Date & Type Note Facility 09-20-2022 Evaluation + Plan note Diagnostic Tests PendingHCV Antibody RFX to Quant PCR 09/20/22 [facility] Hospital Discharge instructions 06-18-2022 Note Date & Type Note Facility 06-18-2022 Hospital Discharg e instructions Patient Education 06/18/2022 10:45:57 BMI for Adults BMI for Adults Body mass index (BMI) is a number that is calculated from a person's weight and height. BMI may help to estimate how much of a person's weight is composed of fat. BMI can help identify those who may be at higher risk for certain medical problems. How is BMI used with adults? BMI is used as a screening tool to identify possible weight problems. It is used to check whether a person is obese, overweight, healthy weight, or underweight. How is BMI calculated? BMI measures your weight and compares it to your height. This can be done either in [place] ([place] or metric measurements. Note that charts are available to help you find your BMI quickly and easily without having to do these calculations yourself. To calculate your BMI in [place] measurements, your health care provider will: 1.Measure your weight in pounds (lb). 2.Multiply the number of pounds by 703. For example, for a person who weighs 180 lb, multiply that number by 703, which equals [phone],540. 3.Measure your height in inches (in). Then multiply that number by itself to get a measurement called inches squared. For example, for a person who is 70 in tall, the inches squared measurement is 70 in x 70 in, which equals 4900 inches squared. 4.Divide the total from Step 2 (number of lb x 703) by the total from Step 3 (inches squared): 126,540 4900 = 25.8. This is your BMI. To calculate your BMI in metric measurements, your health care provider will: 1.Measure your weight in kilograms (kg). 2.Measure your height in meters (m). Then multiply that number by itself to get a measurement called meters squared. For example, for a person who is 1.75 m tall, the meters squared measurement is 1.75 m x 1.75 m, which is equal to 3.1 meters squared. 3.Divide the number of kilograms (your weight) by the meters squared number. In this example: 70 3.1 = 22.6. This is your BMI. How is BMI interpreted? To interpret your results, your health care provider will use BMI charts to identify whether you are underweight, normal weight, overweight, or obese. The following guidelines will be used: Underweight: BMI less than 18.5. Normal weight: BMI between 18.5 and 24.9. Overweight: BMI between 25 and 29.9. Obese: BMI of 30 and above. Please note: Weight includes both fat and muscle, so someone with a muscular build, such as an athlete, may have a BMI that is higher than 24.9. In cases like these, BMI is not an accurate measure of body fat. To determine if excess body fat is the cause of a BMI of 25 or higher, further assessments may need to be done by a health care provider. BMI is usually interpreted in the same way for men and women. Why is BMI a useful tool? BMI is useful in two ways: Identifying a weight problem that may be related to a medical condition, or that may increase the risk for medical problems. Promoting lifestyle and diet changes in order to reach a healthy weight. Summary Body mass index (BMI) is a number that is calculated from a person's weight and height. BMI may help to estimate how much of a person's weight is composed of fat. BMI can help identify those who may be at higher risk for certain medical problems. BMI can be measured using Georgian measurements or metric measurements. To interpret your results, your health care provider will use BMI charts to identify whether you are underweight, normal weight, overweight, or obese. This information is not intended to replace advice given to you by your health care provider. Make sure you discuss any questions you have with your health care provider. Document Released: 07/16/2005 Document Revised: 10/17/2018 Document Reviewed: 09/17/2018 [email or web address] Patient Education 2020 [email or web address] 06/18/2022 10:45:54 Managing Anxiety, Adult Managing Anxiety, Adult After being diagnosed with an anxiety disorder, you may be relieved to know why you have felt or behaved a certain way. You may also feel overwhelmed about the treatment ahead and what it will mean for your life. With care and support, you can manage this condition and recover from it. How to manage lifestyle changes Managing stress and anxiety Stress is your body's reaction to life changes and events, both good and bad. Most stress will last just a few hours, but stress can be ongoing and can lead to more than just stress. Although stress can play a major role in anxiety, it is not the same as anxiety. Stress is usually caused by something external, such as a deadline, test, or competition. Stress normally passes after the triggering event has ended. Anxiety is caused by something internal, such as imagining a terrible outcome or worrying that something will go wrong that will devastate you. Anxiety often does not go away even after the triggering event is over, and it can become long-term (chronic) worry. It is important to understand the differences between stress and anxiety and to manage your stress effectively so that it does not lead to an anxious response. Talk with your health care provider or a counselor to learn more about reducing anxiety and stress. He or she may suggest tension reduction techniques, such as: Music therapy. This can include creating or listening to music that you enjoy and that inspires you. Mindfulness-based meditation. This involves being aware of your normal breaths while not trying to control your breathing. It can be done while sitting or walking. Centering prayer. This involves focusing on a word, phrase, or sacred image that means something to you and brings you peace. Deep breathing. To do this, expand your stomach and inhale slowly through your nose. Hold your breath for 3 5 seconds. Then exhale slowly, letting your stomach muscles relax. Self-talk. This involves identifying thought patterns that lead to anxiety reactions and changing those patterns. Muscle relaxation. This involves tensing muscles and then relaxing them. Choose a tension reduction technique that suits your lifestyle and personality. These techniques take time and practice. Set aside 5 15 minutes a day to do them. Therapists can offer counseling and training in these techniques. The training to help with anxiety may be covered by some insurance plans. Other things you can do to manage stress and anxiety include: Keeping a stress/anxiety diary. This can help you learn what triggers your reaction and then learn ways to manage your response. Thinking about how you react to certain situations. You may not be able to control everything, but you can control your response. Making time for activities that help you relax and not feeling guilty about spending your time in this way. Visual imagery and yoga can help you stay calm and relax. Medicines Medicines can help ease symptoms. Medicines for anxiety include: Anti-anxiety drugs. Antidepressants. Medicines are often used as a primary treatment for anxiety disorder. Medicines will be prescribed by a health care provider. When used together, medicines, psychotherapy, and tension reduction techniques may be the most effective treatment. Relationships Relationships can play a big part in helping you recover. Try to spend more time connecting with trusted friends and family members. Consider going to couples counseling, taking family education classes, or going to family therapy. Therapy can help you and others better understand your condition. How to recognize changes in your anxiety Everyone responds differently to treatment for anxiety. Recovery from anxiety happens when symptoms decrease and stop interfering with your daily activities at home or work. This may mean that you will start to: Have better concentration and focus. Worry will interfere less in your daily thinking. Sleep better. Be less irritable. Have more energy. Have improved memory. It is important to recognize when your condition is getting worse. Contact your health care provider if your symptoms interfere with home or work and you feel like your condition is not improving. Follow these instructions at home: Activity Exercise. Most adults should do the following: ?Exercise for at least 150 minutes each week. The exercise should increase your heart rate and make you sweat (moderate-intensity exercise). ?Strengthening exercises at least twice a week. Get the right amount and quality of sleep. Most adults need 7 9 hours of sleep each night. Lifestyle Eat a healthy diet that includes plenty of vegetables, fruits, whole grains, low-fat dairy products, and lean protein. Do not eat a lot of foods that are high in solid fats, added sugars, or salt. Make choices that simplify your life. Do not use any products that contain nicotine or tobacco, such as cigarettes, e-cigarettes, and chewing tobacco. If you need help quitting, ask your health care provider. Avoid caffeine, alcohol, and certain ibzr-skx-yiuorzi cold medicines. These may make you feel worse. Ask your pharmacist which medicines to avoid. General instructions Take hvrq-ejg-gfvwwat and prescription medicines only as told by your health care provider. Keep all follow-up visits as told by your health care provider. This is important. Where to find support You can get help and support from these sources: Self-help groups. Online and community organizations. A trusted spiritual leader. Couples counseling. Family education classes. Family therapy. Where to find more information You may find that joining a support group helps you deal with your anxiety. The following sources can help you locate counselors or support groups near you: Mental Health [place]: www.mentalhealthamerica.net Anxiety and Depression Association of [place] (ADAA): www.adaa.org National [place] on Mental Illness (NOAH): www.noah.org Contact a health care provider if you: Have a hard time staying focused or finishing daily tasks. Spend many hours a day feeling worried about everyday life. Become exhausted by worry. Start to have headaches, feel tense, or have nausea. Urinate more than normal. Have diarrhea. Get help right away if you have: A racing heart and shortness of breath. Thoughts of hurting yourself or others. If you ever feel like you may hurt yourself or others, or have thoughts about taking your own life, get help right away. You can go to your nearest emergency department or call: Your local emergency services (911 in the [place] A suicide crisis helpline, such as the National Suicide Prevention Lifeline at . This is open 24 hours a day. Summary Taking steps to learn and use tension reduction techniques can help calm you and help prevent triggering an anxiety reaction. When used together, medicines, psychotherapy, and tension reduction techniques may be the most effective treatment. Family, friends, and partners can play a big part in helping you recover from an anxiety disorder. This information is not intended to replace advice given to you by your health care provider. Make sure you discuss any questions you have with your health care provider. Document Released: 10/29/2017 Document Revised: 04/05/2020 Document Reviewed: 04/05/2020 Elsevier Patient Education 2020 [email or web address] Inc[employer] Follow Up Care 06/13/2022 10:40:12 With:Heidy BALLESTEROS CNP Address: [address] [place] [phone]- When: only if needed [facility] History of Present illness Narrative 08-18-2021 Note Date & Type Note Facility 08-18-2021 History of Present illness Narrative This is a 37 year old female with no significant medical history who presents for evaluation of right labial varicose veins. The patient has had 5 pregnancies. She states she developed 3 small lesions on her labia after the of her youngest son in 08/2021, which she thought were black pimples at the time. She was evaluated by her OBGYN who told her they were varicose veins. She was told to put Purell on them and they eventually went away, however they continue to recur. She currently has one on her right labia. They will occasionally bleed and then turn to a scab. Denies pain but they sometimes get irritated from rubbing on her clothing. Denies pelvic swelling. She does not have any lower extremity varicose veins or leg swelling. Grandmother with a history of varicose veins. No personal or family history of DVT. Non-smoker. [place] [address] Work Phone: History of Present illness Narrative 08-18-2021 Note Date & Type Note Facility 08-18-2021 History of Present illness Narrative This is a 37 year old female with no significant medical history who presents for evaluation of right labial varicose veins. The patient has had 5 pregnancies. She states she developed 3 small lesions on her labia after the of her youngest son in 08/2021, which she thought were black pimples at the time. She was evaluated by her OBGYN who told her they were varicose veins. She was told to put Purell on them and they eventually went away, however they continue to recur. Denies pelvic swelling. She does not have any lower extremity varicose veins or leg swelling. Grandmother with a history of varicose veins. No personal or family history of DVT. Non-smoker.Pt has 5 children with her last Aug 2021. Since then, patient has developed severe mensuration with clotting tissue and heavy flow lasting almost 10 days with very little relief between menstruation. She was seen by her [employer] C[employer] Dr. Smith who placed IUD the end of May. Since then, she has experienced 3 ?vaginal varicosity bleeds.Dr. Smith recently excised on of the 3 areas of varicose veins just a few weeks ago.+ pelvic pain and cramping during menses. Very heavy. No pain during intercourse. NO pain or discomfort during BM or urination .Comprehensive ROS:All other systems have been reviewed and are negative except as noted in HPIPast medical, family and social history reviewed but not pertinent to current problem except as mentioned in HPIGeneral: Alert and oriented responsiveEyes: No icterusNeck: No scars no bruitsNeurological: Upper extremity and lower extremity strength +5 out of 5, gait and cognition and speech within normal limitsHeart: Regular rate and rhythmLungs: ClearAbdomen: Soft nontender no palpable masses or aneurysmVascular: Normal 2+ upper extremity pulses, normal 2+ lower extremity pulsesNo evidence of ropey VV or spider vein. No big labial varicose veins. One pinpoint black dot present on left labiaSkin: No open ulcers or wounds -[facility] Work Phone: Chief complaint Narrative - Reported Note Date & Type Note Facility Chief complaint Narrative - Reported The patient presents to the office today for an initial evaluation.Labia Varicose Veins that keep rupturing [facility] Work Phone: Chief complaint Narrative - Reported Note Date & Type Note Facility Chief complaint Narrative - Reported The patient presents to the office today for an initial evaluation.The patient presents for evaluation of. Pelvic venous congestion , labial varicose vein.The patient is referred by: Dr Mike, Primary Care Physician.Labia Varicose Veins that keep rupturing -[facility] Work Phone: Evaluation + Plan note Note Date & Type Note Facility Evaluation + Plan note No data available for this section [facility] Hospital Discharge instructions Note Date & Type Note Facility Hospital Discharge instructions No data available for this section [facility] Progress note Note Date & Type Note Facility Progress note No data available for this section [facility] Summary Purpose Family History No Family History Records FoundNo Family History Records FoundNo Family History Records FoundNo Family History Records FoundNo Family History Records FoundNo Family History Records Found Advance Directives No Advanced Directives Records FoundNo Advanced Directives Records FoundNo Advanced Directives Records FoundNo Advanced Directives Records FoundNo Advanced Directives Records FoundNo Advanced Directives Records Found Additional Source Comments Care Team (unrecognized sect ion and content) Personnel Name: Heidy BALLESTEROS CNP Address: [address] [facility] [address] [place], [place] [address] Personnel Name: Warren OBED Casie R Address: Address: [address], [place] [address] [place] INFORMATION SOURCE (unrecogn ized section and content) DATE CREATED AUTHOR 09/26/2022 [facility] DATE CREATED AUTHOR AUTHOR'S ORGANIZ ATION 10/18/2022 [employer] DATE CREATED AUTHOR AUTHOR'S ORGANIZ ATION 10/23/2022 [facility] DATE CREATED AUTHOR AUTHOR'S ORGANIZ ATION 03/10/2023 [facility] DATE CREATED AUTHOR AUTHOR'S ORGANIZ ATION 10/15/2023 [facility] DATE CREATED AUTHOR AUTHOR'S ORGANIZ ATION 08/18/2024 [facility] EPIC FOR RECORDS PERTAINING TO PATIENTS WHO ARE OR HAVE BEEN ENROLLED IN A CHEMICAL DEPENDENCY/SUBSTANCEABUSE PROGRAM, SOME INFORMATION MAY BE OMITTED. This clinical summary was aggregated from multiple sources. Caution should be exercised in using it in the provision of clinical care. This summary normalizes information from multiple sources, and as a consequence, information in this document may materially change the coding, format and clinical context of patient data. In addition, data may be omitted in some cases. CLINICAL DECISIONS SHOULD BE BASED ON THE PRIMARY CLINICAL RECORDS. [facility] [employer] provides no warranty or guarantee of the accuracy or completeness of information in this document.
== END 2024-10-12 20:26 | disposition home or self-care (01) ==
LOC: LAB 20:25
PROVIDERS: Visit Provider Obstetrics & Gynecology
DX: Z01.419 Encounter for gynecological examination (general) (routine) without abnormal findings (principal); Z90.710 Acquired absence of both cervix and uterus
CPT/HCPCS: 87624; 88175

== ENCOUNTER 2025-11-01 20:55 | Outpatient (REF) | payer OTHER, SELFPAY ==
--- OUTSIDE RECORDS SUMMARY | 2025-11-01 13:20 | XMS_ITS | Encounter Summary ---
Author Organization [facility] Address [address] [place] [address] Care Team Providers Care Poultry Scalder Name Role Phone Unavailable Primary Care Provider Unavailabl e Reason for Visit * ReasonCommentsWell Women Visit Encounter Details DateTypeDepartmentCare Team (Latest Contact Info)Xqehjwlikmc32/15/2025 1:20 PM ESTOffice Visit [facility] [address] [place] [phone] Luigi Llamas DO [address] [place] [address] Well woman exam with routine gynecological exam Social History Tobacco UseTypesPacks/DayYears UsedDateSmoking Tobacco: NeverAlcohol UseStandard Drinks/WeekCommentsYes0 (1 standard drink = 0.6 oz pure alcohol)Alcohol: 1 or 2 drinks on a typical day / 2 to 4 times a month. Caffeine: 1-2 cups/dayAUDIT-C AnswerDate RecordedQ1: How often do you have a drink containing alcohol?2-4 times a month10/13/2023Q2: How many drinks containing alcohol do you have on a typical day when you are drinking?1 or Q3: How often do you have six or more drinks on one occasion?Daongc7610/13/2023CommentsNoSex and Gender InformationValueDate RecordedSex Assigned at BirthNot on fileLegal SexFemale 01/30/2023 7:28 PM EDTGender IdentityNot on fileSexual OrientationNot on file documented as of this encounter Last Filed Vital Signs Vital SignReadingTime TakenCommentsBlood Utuyrwsl143/7011/01/2025 1:34 PM EST Pulse--Temperature--Respiratory Rate--Oxygen Saturation--Inhaled Oxygen Concentration--Mtyroc36.2 kg (106 lb 4 oz)11/01/2025 1:34 PM ESTHeight--Body Mass Index17.15011/20/2023 1:27 PM ESTdocumented in this encounter Plan of Treatment DateTypeDepartmentCare Team (Latest Contact Info)Cbyfgygixfm72/06/2027 1:00 PM ESTProcedure Visit [facility] [address] [place] [phone] Luigi Llamas DO [address] [place] [address] NameTypePriorityAssociated DiagnosesOrder SchedulePap SmearPathology and CytologyRoutine Well woman exam with routine gynecological exam Ordered: 11/01/2025HPV DNA probe, amplifiedMicrobiologyRoutine Well woman exam with routine gynecological exam Ordered: 11/01/2025documented as of this encounter Visit Diagnoses Diagnosis Well woman exam with routine gynecological exam Routine gynecological examination documented in this encounter
--- OUTSIDE RECORDS SUMMARY | 2025-11-01 21:01 | XMS_ITS | Encounter Summary ---
Author Organization [facility] Address [address] [place] [address] Care Team Providers Care Drawing Instructor Name Role Phone Unavailable Primary Care Provider Unavailabl e Encounter Details DateTypeDepartmentCare Team (Latest Contact Info)Uvteqjdgjgu49/15/2025amboo flowsheet [facility] [address] [place] [address] Luigi Llamas DO [address] [place], [place] [address] Social History Tobacco UseTypesPacks/DayYears UsedDateSmoking Tobacco: NeverAlcohol [...] have six or more drinks on one occasion?Xwhcus1310/13/2023CommentsNoSex and Gender InformationValueDate RecordedSex Assigned at BirthNot on fileLegal SexFemale 01/30/2023 7:28 PM EDTGender IdentityNot on fileSexual OrientationNot on file documented as of this encounter Plan of Treatment DateTypeDepartmentCare Team (Latest Contact Info)Ezerkirleue54/06/2027 1:00 PM ESTProcedure Visit [facility] [address] [place] [address] Luigi Llamas DO [address] [place] [address] documented as of this encounter Visit Diagnoses Not on filedocumented in this encounter
--- OUTSIDE RECORDS SUMMARY | 2025-11-01 21:01 | XMS_ITS | Patient Health Record ---
Author Organization Corporate Office Address [address] [place] [address] [address] [place] [address] Care Team Providers Care Correctional Security Officer Name Role Phone Alexis Pritchett Primary Care Provider Reason For Referral No Information Plan Of Treatment No Information Insurance Providers Payer Name Payer Address Payer Phone Subscriber Number Group Number Insured Name Patient Relationship to Insured Coverage Start Date Coverage End Date [facility]- [facility] (2) [address] [place] [address] Nathalie Poolelf - patient is the insured
--- OUTSIDE RECORDS SUMMARY | 2025-11-01 21:01 | XMS_ITS | Clinical Summary ---
Author Organization [facility] Address [address] [place] [address] Phone Care Team Providers Care Quality Control Name Role Phone Lluvia Mike Primary Care Provider Unava ilable Social History Tobacco UseTypesPacks/DayYears UsedDateSmoking Tobacco: Never Assessed CommentsUnknownSex and Gender InformationValueDate RecordedSex Assigned at Not on fileLegal CrmLlzznx34/26/2022 1:40 AM ESTGender IdentityNot on fileSexual OrientationNot on file Last Filed Vital Signs Vital SignReadingTime TakenCommentsBlood Fiinvtht058/7009/27/2022 1:26 PM EST Aauto426309/27/2022 1:26 PM ESTTemperature--Respiratory Rate--Oxygen Saturation 100%09/27/2022 1:26 PM ESTInhaled Oxygen Concentration--Dfloca84.5 kg (107 lb) 09/27/2022 1:26 PM VQWCgcxpr229.1 cm (5' 5 )09/27/2022 1:26 PM ESTBody Mass Index17.8109/27/2022 1:26 PM EST Plan of Treatment Not on file Care Teams Team MemberRelationshipSpecialtyStart DateEnd Date Lluvia Mike APRN-CNP PCP - Gsgsmvo92/10/22
--- OUTSIDE RECORDS SUMMARY | 2025-11-01 21:01 | XMS_ITS | Patient Health Record ---
Author Organization [facility] Address [address] [place] [address] Care Team Providers Care Cargo Trimmer Name Role Phone Dr. Tono Degroot Unavailable [phone] Reason For Referral No Information Problems Problem Type SNOMED Code ICD Code Onset Dates Problem Status W/U Status Risk Notes Problem Vulval varices (45692582) Vulval varices (I86.3) Activeconfirmed Plan Of Treatment No Information Insurance Providers Payer Name Payer Address Payer Phone Subscriber Number Group Number Insured Name Patient Relationship to Insured Coverage Start Date Coverage End Date [employer] [address] [place] [address] [id number], StacySelf - patient is the insured
--- OUTSIDE RECORDS SUMMARY | 2025-11-01 21:01 | XMS_ITS | Clinical Summary ---
Author Organization [facility] Address [address] [place] [address] Care Team Providers Care Big Data Admin Name Role Phone Unavailable Primary Care Provider Unavailabl e Allergies No known active allergies Medications MedicationSigDispense QuantityRefillsLast FilledStart DateEnd DateStatus Multiple Vitamin (Multi Vitamin) tablet 1 (one) time each day at the same time.Active busPIRone (Buspar) 10 MG tablet Take 10 mg by mouth Daily as subdrp8610/13/2025tive diazePAM (Valium) 5 MG tablet TAKE 1 -2 TABLETS BY MOUTH AT OFFICE WHEN INSTRUCTED BY YRHPUF9701/21/2024 11/01/2025Discontinued docusate sodium (Colace) 100 MG capsule Take 100 mg by mouth in the morning and 100 mg before bedtime.10/08/2023 11/01/2025Discontinued estradiol (Estrace) 0.5 MG tablet Indications:H/O: hysterectomyTake 2 tablets (1 mg) by mouth Daily 180 tablet Discontinued Active Problems ProblemNoted DateDiagnosed DateUTI lflxfovt70/16/2024Menorrhagia with regular cycle04/24/2023Obsessive-compulsive nbuobyit86/07/2023Verruca plantaris 04/24/2023 Encounters DateTypeDepartmentCare LpqkOdtkcnvahnj25/15/2025 1:20 PM ESTOffice Visit [facility] [address] [place] [id number] Luigi Llamas, DO Well woman exam with routine gynecological exam11/01/2025amboo flowsheet [facility] [address] [place] [address] Luigi Llamas DO from Last 3 Months Family History Medical HistoryRelationNameCommentsHypertensionFatherBreast cancerMother's SisterBreast cancerOtherMaternal Great AuntRelationNameStatusCommentsFatherAlive MotherAliveMother's SisterOtherMaternal Great Aunt Social History Tobacco UseTypesPacks/DayYears UsedDateSmoking Tobacco: Never Tobacco Cessation:Counseling Given: Not Answered Alcohol UseStandard Drinks/WeekCommentsYes0 (1 standard drink = 0.6 oz pure alcohol)Alcohol: 1 or 2 drinks on a typical day / 2 to 4 times a month. Caffeine: 1-2 cups/dayAUDIT-CAnswerDate RecordedQ1: How often do you have a drink containing alcohol?2-4 times a month10/13/2023Q2: How many drinks containing alcohol do you have on a typical day when you are drinking?1 or 2 10/13/2023Q3: How often do you have six or more drinks on one occasion?Weekly 10/13/2023CommentsNoSex and Gender InformationValueDate RecordedSex Assigned at BirthNot on fileLegal GybDmqpeq08/15/2023 7:28 PM EDTGender Identity Not on fileSexual OrientationNot on file Last Filed Vital Signs Vital SignReadingTime TakenCommentsBlood Vdiwpuaj203/7011/01/2025 1:34 PM EST Xkufj781911/20/2023 1:27 PM ESTTemperature--Respiratory Rate--Oxygen Saturation-- Inhaled Oxygen Concentration--Ssoskb79.2 kg (106 lb 4 oz)11/01/2025 1:34 PM EST Ougbkn170.6 cm (5' 6 )11/20/2023 1:27 PM ESTBody Mass Index17.15011/20/2023 1:27 PM EST Plan of Treatment DateTypeDepartmentCare Team (Latest Contact Info)Drpstoeawmj41/06/2027 1:00 PM ESTProcedure Visit [facility] [address] [place] [address] Luigi Llamas DO [address] [place] [address] Health MaintenanceDue DateLast DoneCommentsCOVID-19 Vaccine ( season) , 09/19/2021Influenza Vaccine (#1)/, 09/19/2019Cervical Cancer Sttbwygpc84/25/2029HPV/Fkcjhv56/ap Smear/, 04/25/2023neumococcal Vaccine: Pediatrics (0 to 5 Years) and At-Risk Patients (6 to 64 Years)Aged OutNo longer eligible based on patient's age to complete this topic Procedures Procedure NamePriorityDate/TimeAssociated DiagnosisCommentsPAP SMEARRoutine 10/12/2024 12:00 AM ESTHISTORIC PAP WITH HPV ALFNZRJascohq33/19/2021 12:00 PM EDT from Last 3 Months or Most Recently Relevant to Health Maintenance Results * Pap Smear (10/12/2024 12:00 AM EST)Specimen (Source)Anatomical Location / LateralityCollection Method / VolumeCollection TimeReceived TimeSwabCervical swab / Unknown Narrative Authorizing ProviderResult TypeResult StatusCorey Farhad DOL CYTOLOGY ORDERABLESFinal ResultPerforming OrganizationAddressCity/State/ZIP CodePhone Number EXTERNAL LAB * HISTORIC PAP WITH HPV RESULT (03/06/2021 12:00 PM EDT)ComponentValueRef Range Test MethodAnalysis TimePerformed AtPathologist SignatureGENERIC LEGACY COMPONENT INTERNALnegative for inraepithelial lesion or malignancy.[facility] NONXML LABSGENERIC LEGACY COMPONENT INTERNALnegativeECW NONXML LABSSpecimen (Source) Anatomical Location / LateralityCollection Method / VolumeCollection Time Received Time03/06/2021 12:00 PM EDT Narrative Authorizing ProviderResult TypeResult StatusStleo Munoz NPECW LABSFinal ResultPerforming OrganizationAddressCity/State/ZIP CodePhone Number [facility] NONXML LABS from Last 3 Months or Most Recently Relevant to Health Maintenance Insurance
== END 2025-11-01 20:56 | disposition home or self-care (01) ==
LOC: LAB 20:55
PROVIDERS: Visit Provider Obstetrics & Gynecology
DX: Z01.419 Encounter for gynecological examination (general) (routine) without abnormal findings (principal)
CPT/HCPCS: 88175